=== PATIENT | female | born 1970 | race Caucasian/White ===

== ENCOUNTER 2023-08-24 10:24 | Outpatient (OUT) | payer OTHER, SELFPAY ==
--- NOTE | 2023-08-24 10:31 | MM_ITS ---
Patient Name: SHREE ACUÑA MR#: [id number] : 1970 Exam Date: 08/24/2023 Ordering Doctor: DR. ANAI ARREOLA D.O. RADIOLOGY REPORT PROCEDURE: MM TOMOSYNTHESIS SCREENING BI COMPARISON: MG MAMM SCREEN JOSE W CAD, 11/07/2016. MG MAMM SCREEN JOSE W CAD, 07/03/2020. INDICATIONS: Screening Calculator Name NCI Breast Cancer Risk Assessment Tool 5 Year Breast Cancer Risk 1.50% Lifetime Breast Cancer Risk 11.60% Personal Breast Cancer No Personal Ovarian Cancer No Treatments None Family Cancers None LOCATION: [facility] BREAST COMPOSITION: Extremely dense, which lowers the sensitivity of mammography. FINDINGS: DIAGNOSTIC CATEGORY 1--NEGATIVE. NO CHANGE FROM COMPARISON ASSESSMENT. Scattered benign-appearing nodules are present. Scattered benign-appearing calcifications are present. Scattered benign-appearing lymph nodes are present. RIGHT BREAST: No significant suspicious finding. LEFT BREAST: No significant suspicious finding. RECOMMENDATIONS: ROUTINE MAMMOGRAM AND CLINICAL EVALUATION IN 12 MONTHS. PLEASE NOTE: A NORMAL MAMMOGRAM DOES NOT EXCLUDE THE POSSIBILITY OF BREAST CANCER. A CLINICALLY SUSPICIOUS PALPABLE LUMP SHOULD BE BIOPSIED. Dictated by: Mark Vidal MD on 08/24/2023 at 11:15 Approved by: Mark Vidal MD on 08/24/2023 at 11:17
== END 2023-08-24 10:25 | disposition home or self-care (01) ==
LOC: MAMMO 10:24
PROVIDERS: PCP Family Medicine; Visit Provider Obstetrics & Gynecology
DX: Z12.31 Encounter for screening mammogram for malignant neoplasm of breast (principal)
CPT/HCPCS: 77063; 77067

== ENCOUNTER 2023-11-22 06:33 | Emergency (ER) | payer OTHER, SELFPAY ==
[2023-11-22] VITALS (11 sets, daily range): BP systolic 140–155; BP diastolic 72–91; PULSE 87–111; RESP 16–27; TEMP 36.7–37.2; O2SAT 95–97
--- OUTSIDE RECORDS SUMMARY | 2023-11-22 06:41 | XMS_ITS | CCD ---
Author Name Unknown Address [address] [place] [address] [id number] [place] [address] Organization [facility] Care Team Providers Care Pop Singer Name Role Phone Luiza Cota Unavailable Unavailable Luiza Cota Unavailable Unavailable MARIO AMEZCUA Unavailable Unavailable DALIA SCHWARTZ Consulting Unavailable TOMMY SAHA Admitting Unavailable TOMMY SAHA Attending Unavailable DR MORIAH NYE Primary Care Unavailable Mark Clarke Consulting Unavailable TOMMY SAHA Consulting Unavailable LINDSEY ARREOLA Attending Unavailable LINDSEY ARREOLA Admitting Unavailable Laura Andrews Unavailable Faiza Bruce Unavailable LINDSEY ARREOLA Attending Unavailable MORIAH NYE Attending Unavailable Moriah Nye MD Unavailable Moriah Nye MD Primary Care Provider Allergies Allergy Classification Reported Allergen(s) Allergy Type Date of Onset Reaction(s) Facility (1 source) Sulfonamides (Antibiotic); Translations: [sulfa drugs] Propensity to adverse reactions (disorder) [facility] Repository (1 source) Sulfonamides (Antibiotic) Drug allergy (disorder) [facility] Repository (2 sources) Sulfacetamide / Sulfur Drug Allergy rash [employer] Other (2 sources) Sulfonamides (Antibiotic) Drug Intolerance 08-26-20 [facility] Healthcare (2 sources) Milk-Related Compounds Drug Allergy 10-01-19 24 [facility] Medications Current Medications Medication Drug Class(es) Dates Sig (Normalized) Sig (Original) [id number] 200 actuat albuterol 0.09 mg/actuat metered dose inhaler (2 sources) beta2-Adrenergic Agonist albuterol HFA (Ventolin HFA) 90 mcg/act inhaler every 4 (four) hours 0 Active amoxicillin 875 mg oral tablet (1 source) Penicillin-class Antibacterial Start: 04-13-2023 take 1 tablet by mouth every twelve hours Amoxicillin 875 MG 1 capsule Orally Twice a day for 10 days Mar, Active busPIRone hydrochloride 5 mg oral tablet (2 sources) Start: 12-16-2022 busPIRone (Buspar) 5 MG tablet every 8 (eight) hours 0 12/16/2022 Active dicyclomine hydrochloride 10 mg oral capsule (1 source) Anticholinergic Start: 10-20-2023 take 1 capsule by mouth in the morning dicyclomine (Bentyl) 10 MG capsule Indications: Irritable bowel syndrome with diarrhea Take 1 capsule (10 mg) by mouth in the morning and 1 capsule (10 mg) before bedtime. 200 capsule 2 10/20/2023 Active docosahexaenoic acid 120 mg / eicosapentaenoic acid 180 mg oral capsule (2 sources) omega-3 (fish oil) 1000 MG capsule 1 capsule 1 (one) time each day at the same time 0 Active hyoscyamine sulfate 0.125 mg sublingual tablet (2 sources) Start: 10-20-2023 End: 01-18-2024 hyoscyamine (Levsin/SL) 0.125 MG SL tablet Indications: Irritable bowel syndrome with diarrhea Place 1 tablet (125 mcg) under the tongue every 4 (four) hours if needed for bladder spasms 120 tablet 2 10/20/2023 01/18/2024 Active Start: 10-20-2023 End: 10-20-2023 take 5 mL by mouth every four hours for muscle spasms hyoscyamine (Levsin) 0.125 MG/5ML elixir Indications: Irritable bowel syndrome with diarrhea Take 5 mL (125 mcg) by mouth every 4 (four) hours if needed for bladder spasms 600 mL 2 10/20/2023 10/20/2023 Discontinued (Other) metroNIDAZOLE 0.0075 mg/mg topical gel (2 sources) Nitroimidazole Antimicrobial Start: 09-23-2023 metroNIDAZOLE (Metrogel) 0.75 % gel APPLY TOPICALLY TO FACE TWICE A DAY 0 09/23/2023 Active Multiple Vitamins-Minerals (Multi For Her) capsule (2 sources) Multiple Vitamins-Minerals (Multi For Her) capsule as directed Orally 0 Active 24 hr venlafaxine 75 mg extended release oral capsule (2 sources) Serotonin and Norepinephrine Reuptake Inhibitor Start: 01-26-2023 take 1 capsule by mouth once daily at mealtime venlafaxine XR (Effexor XR) 75 MG 24 hr capsule TAKE 1 CAPSULE BY MOUTH ONCE EVERYDAY WITH FOOD 0 01/26/2023 Active VITAMIN B COMPLEX-C PO (2 sources) VITAMIN B COMPLEX-C PO Vitamin B Complex 0 Active Vitamin C 250 MG tablet (2 sources) Vitamin C 250 MG tablet Vitamin C 0 Active Problems Active Problems Problem Classification Problem Date Documented Da te Episodic/Chronic Adjustment disorders (2 sources) Adjustment disorder with mixed disturbance of emotions AND conduct; Translations: [Adjustment disorder with mixed disturbance of emotions and conduct] Onset: 04-07-2008 10-08-2023 Chronic Disorders of lipid metabolism (2 sources) Eruptive xanthoma; 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] Onset: 10-08-2023 10-08-2023 Chronic Intestinal infection (1 source) Viral gastroenteritis; Translations: [Viral intestinal infection, unspecified] Onset: 10-20-2023 10-20-2023 Episodic Menopausal disorders (2 sources) Menopausal symptom; Translations: [Menopausal and female climacteric states] Onset: 10-08-2023 10-08-2023 Chronic Menstrual disorders (2 sources) Disorder of menstruation; Translations: [Irregular menstruation, unspecified] Onset: 10-08-2023 10-08-2023 Chronic Mood disorders (2 sources) Depressive disorder; Translations: [Depressive disorder] Onset: 04-07-2008 10-08-2023 Chronic Nutritional deficiencies (2 sources) Vitamin D deficiency; Translations: [Vitamin D deficiency, unspecified] Onset: 10-08-2023 10-08-2023 Chronic Other ear and sense organ disorders (1 source) Impacted cerumen, bilateral Episodic Other ear and sense organ disorders (1 source) Impacted cerumen, right ear Episodic Other gastrointestinal disorders (2 sources) Irritable bowel syndrome; Translations: [Irritable bowel syndrome without diarrhea] Onset: 04-07-2008 10-08-2023 Chronic Other gastrointestinal disorders (1 source) Irritable bowel syndrome with diarrhea; Translations: [Irritable bowel syndrome with diarrhea] 10-20-2023 Chronic Other lower respiratory disease (1 source) Shortness of breath; Translations: [SHORTNESS OF BREATH] Onset: 08-13-2021 Episodic Other upper respiratory disease (2 sources) Allergic rhinitis; Translations: [Allergic rhinitis, unspecified] Onset: 04-07-2008 10-08-2023 Chronic Other upper respiratory infections (1 source) Acute frontal sinusitis, unspecified Episodic Pneumonia (except that caused by tuberculosis or sexually transmitted disease) (1 source) Pneumonia (except that caused by tuberculosis or sexually transmitted disease); Translations: [PNEUMONIA D/T CORONAVIRUS DIS 2019] Onset: 08-13-2021 Respiratory failure; insufficiency; arrest (adult) (1 source) Acute respiratory failure; Translations: [Acute respiratory failure with hypoxia] Onset: 10-20-2023 10-20-2023 Episodic Viral infection (5 sources) Verruca plantaris; Translations: [Plantar wart] Onset: 10-08-2023 10-08-2023 Episodic Viral infection (4 sources) COVID-19; Translations: [COVID-19] Onset: 08-10-2021 Past or Other Problems Problem Classification Problem Date Documented Da te Episodic/Chronic Gastritis and duodenitis (2 sources) Acute gastritis; Translations: [Acute gastritis without bleeding] Onset: 04-07-2008 10-08-2023 Episodic Other ear and sense organ disorders (2 sources) Bullous myringitis; 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 Performed By: #### B AUTOMATIC MACHINES SUPERVISOR, CKMB, CBC, CK, CMP, HS TROP #### [address] Comprehensive Metabolic Pane jade 08-17-2021 Albumin [Mass/Vol] 2.8 g/dL Low 3.2-5.5 [facility] Comment on above: Performed By: #### B AUTOMATIC MACHINES SUPERVISOR, CKMB, CBC, CK, CMP, HS TROP #### [address] Albumin/Globulin [Mass ratio] 1.0 {ratio} Normal [facility] Comment on above: Performed By: #### B AUTOMATIC MACHINES SUPERVISOR, CKMB, CBC, CK, CMP, HS TROP #### [address] ALP [Catalytic activity/Vol] 41 U/L Normal 32-92 [facility] Comment on above: Performed By: #### B AUTOMATIC MACHINES SUPERVISOR, CKMB, CBC, CK, CMP, HS TROP #### [address] ALT [Catalytic activity/Vol] 17 U/L Normal 10-60 [facility] Comment on above: Performed By: #### B AUTOMATIC MACHINES SUPERVISOR, CKMB, CBC, CK, CMP, HS TROP #### [address] AST [Catalytic activity/Vol] 17 U/L Normal 10-42 [facility] Comment on above: Performed By: #### B AUTOMATIC MACHINES SUPERVISOR, CKMB, CBC, CK, CMP, HS TROP #### [address] Bilirubin [Mass/Vol] 1.0 mg/dL Normal 0.3-1.2 [facility] Comment on above: Performed By: #### B AUTOMATIC MACHINES SUPERVISOR, CKMB, CBC, CK, CMP, HS TROP #### [address] Calcium [Mass/Vol] 8.9 mg/dL Normal 8.2-10.2 [facility] Comment on above: Performed By: #### B AUTOMATIC MACHINES SUPERVISOR, CKMB, CBC, CK, CMP, HS TROP #### [address] Chloride [Moles/Vol] 107 mmol/L Normal 95-114 [facility] Comment on above: Performed By: #### B AUTOMATIC MACHINES SUPERVISOR, CKMB, CBC, CK, CMP, HS TROP #### [facility] [address] CO2 [Moles/Vol] 22.7 mmol/L Normal 22.0-30.0 [facility] Comment on above: Performed By: #### B AUTOMATIC MACHINES SUPERVISOR, CKMB, CBC, CK, CMP, HS TROP #### [facility] [address] Creatinine [Mass/Vol] 0.69 mg/dL Normal 0.44-1.03 [facility] Comment on above: Performed By: #### B AUTOMATIC MACHINES SUPERVISOR, CKMB, CBC, CK, CMP, HS TROP #### [facility] [address] Creatinine Clr Calc Pharmacy 97.85 [facility] Comment on above: Performed By: #### B AUTOMATIC MACHINES SUPERVISOR, CKMB, CBC, CK, CMP, HS TROP #### [address] Estimated GFR ( Rin > 60 [facility] Comment on above: Result Comment: GFR estimated reference range: According to KDOQI guidelines, <60 ml/min/1.73m2 is sufficient to diagnose a patient with chronic kidney disease. Performed By: #### B AUTOMATIC MACHINES SUPERVISOR, CKMB, CBC, CK, CMP, HS TROP #### [address] Estimated GFR (Non- Am > 60 [facility] Comment on above: Performed By: #### B AUTOMATIC MACHINES SUPERVISOR, CKMB, CBC, CK, CMP, HS TROP #### [address] Globulin (S) [Mass/Vol] 2.8 g/dL [facility] Comment on above: Performed By: #### B AUTOMATIC MACHINES SUPERVISOR, CKMB, CBC, CK, CMP, HS TROP #### [address] Glucose [Mass/Vol] 87 mg/dL Normal 70-100 [facility] Comment on above: Result Comment: [facility] Glucose Reference Range is dependent on time and content of last meal. Glucose of more than 200 mg/dL in a nonstressed, ambulatory subject supports the diagnosis of Diabetes Mellitus. ADA recommended reference range Performed By: #### B AUTOMATIC MACHINES SUPERVISOR, CKMB, CBC, CK, CMP, HS TROP #### [address] Potassium [Moles/Vol] 3.7 mmol/L Normal 3.5-5.1 [facility] Comment on above: Performed By: #### B AUTOMATIC MACHINES SUPERVISOR, CKMB, CBC, CK, CMP, HS TROP #### [address] Protein [Mass/Vol] 5.6 g/dL Low 6.1-7.9 [facility] Comment on above: Performed By: #### B AUTOMATIC MACHINES SUPERVISOR, CKMB, CBC, CK, CMP, HS TROP #### [address] Sodium [Moles/Vol] 140 mmol/L Normal 136-146 [facility] Comment on above: Performed By: #### B AUTOMATIC MACHINES SUPERVISOR, CKMB, CBC, CK, CMP, HS TROP #### [address] Urea nitrogen [Mass/Vol] 13 mg/dL Normal 9-23 [facility] Comment on above: Performed By: #### B AUTOMATIC MACHINES SUPERVISOR, CKMB, CBC, CK, CMP, HS TROP #### [address] D-Dimer High Sensitivityon 1 10-18-2020 D-Dimer High Sensitivity 203 ng/mL Normal 0-243 [facility] Comment on above: Result Comment: The reference range for D-dimer is <243 ng/mL D-dimer units. D-dimer results must be used in conjunction with a clinical pretest probability (PTP) assessment model for deep vein thrombosis (DVT) and pulmonary embolism (PE). Results <230 ng/mL d-dimer units can be used as a negative predictor in patients with low or moderate probability for DVT/PE. Results above the exclusion threshold of 230 ng/ml D-dimer units for DVT/PE may indicate the need for further diagnostic testing. D-Dimer can be increased in hospitalized patients due to co-morbid conditions. PERFORMED BY: [place] [id number] PATHOLOGIST [employer] I ASSEMBLER RONNIE AQUINO M.D. Performed By: #### B AUTOMATIC MACHINES SUPERVISOR, CKMB, CBC, CK, CMP, HS TROP #### [address] Scan and CBCon 08-17-2021 Basophils (Bld) [#/Vol] 0.0 10*3/uL Normal 0.0-0.2 [facility] Comment on above: Performed By: #### B AUTOMATIC MACHINES SUPERVISOR, CKMB, CBC, CK, CMP, HS TROP #### [address] Basophils/100 WBC (Bld) 0.1 % Normal . [facility] Comment on above: Performed By: #### B AUTOMATIC MACHINES SUPERVISOR, CKMB, CBC, CK, CMP, HS TROP #### [address] Eosinophils (Bld) [#/Vol] 0.0 10*3/uL Normal 0.0-0.45 [facility] Comment on above: Performed By: #### B AUTOMATIC MACHINES SUPERVISOR, CKMB, CBC, CK, CMP, HS TROP #### [address] Eosinophils/100 WBC (Bld) 0.2 % Normal . [facility] Comment on above: Performed By: #### B AUTOMATIC MACHINES SUPERVISOR, CKMB, CBC, CK, CMP, HS TROP #### [address] Erythrocyte distribution width (RBC) [Ratio] 12.5 % Normal 11.9-15.3 [facility] Comment on above: Performed By: #### B AUTOMATIC MACHINES SUPERVISOR, CKMB, CBC, CK, CMP, HS TROP #### [address] Hematocrit (Bld) [Volume fraction] 36.9 % Normal 34.0-46.4 [facility] Comment on above: Performed By: #### B AUTOMATIC MACHINES SUPERVISOR, CKMB, CBC, CK, CMP, HS TROP #### [address] Hemoglobin (Bld) [Mass/Vol] 13.0 g/dL Normal 11.8-15.4 [facility] Comment on above: Performed By: #### B AUTOMATIC MACHINES SUPERVISOR, CKMB, CBC, CK, CMP, HS TROP #### [address] Lymphocytes (Bld) [#/Vol] 1.2 10*3/uL Normal 1.00-4.8 [facility] Comment on above: Performed By: #### B AUTOMATIC MACHINES SUPERVISOR, CKMB, CBC, CK, CMP, HS TROP #### [address] Lymphocytes/100 WBC (Bld) 15.2 % Normal . [facility] Comment on above: Performed By: #### B AUTOMATIC MACHINES SUPERVISOR, CKMB, CBC, CK, CMP, HS TROP #### [address] MCH (RBC) [Entitic mass] 30.6 pg Normal 24.7-34.3 [facility] Comment on above: Performed By: #### B AUTOMATIC MACHINES SUPERVISOR, CKMB, CBC, CK, CMP, HS TROP #### [address] MCV (RBC) [Entitic vol] 86.9 fL Normal 80-100 [facility] Comment on above: Performed By: #### B AUTOMATIC MACHINES SUPERVISOR, CKMB, CBC, CK, CMP, HS TROP #### [address] Mean Corpuscular HGB Conc 35.3 g/dL High 32.0-35.0 [facility] Comment on above: Performed By: #### B AUTOMATIC MACHINES SUPERVISOR, CKMB, CBC, CK, CMP, HS TROP #### [address] Monocytes (Bld) [#/Vol] 0.7 10*3/uL Normal 0.0-0.8 [facility] Comment on above: Performed By: #### B AUTOMATIC MACHINES SUPERVISOR, CKMB, CBC, CK, CMP, HS TROP #### [facility] [address] Monocytes/100 WBC (Bld) 8.6 % Normal . [facility] Comment on above: Performed By: #### B AUTOMATIC MACHINES SUPERVISOR, CKMB, CBC, CK, CMP, HS TROP #### [facility] [address] Neutrophils (Bld) [#/Vol] 5.9 10*3/uL Normal 1.8-7.7 [facility] Comment on above: Performed By: #### B AUTOMATIC MACHINES SUPERVISOR, CKMB, CBC, CK, CMP, HS TROP #### [facility] [address] Neutrophils/100 WBC (Bld) 75.9 % Normal . [facility] Comment on above: Performed By: #### B AUTOMATIC MACHINES SUPERVISOR, CKMB, CBC, CK, CMP, HS TROP #### [address] Nucleated RBC/100 WBC (Bld) [Ratio] 0.2 % Normal 0-0.5 [facility] Comment on above: Performed By: #### B AUTOMATIC MACHINES SUPERVISOR, CKMB, CBC, CK, CMP, HS TROP #### [address] Platelet Estimate Normal Normal Normal [facility] Comment on above: Performed By: #### B AUTOMATIC MACHINES SUPERVISOR, CKMB, CBC, CK, CMP, HS TROP #### [address] Platelet mean volume (Bld) [Entitic vol] 7.0 fL Normal 6.3-10.7 [facility] Comment on above: Performed By: #### B AUTOMATIC MACHINES SUPERVISOR, CKMB, CBC, CK, CMP, HS TROP #### [address] Platelet Morphology Normal Normal Normal [facility] Comment on above: Result Comment: PERF ORMED BY: [place] [id number] PATHOLOGIST [employer] I ASSEMBLER RONNIE AQUINO M.D. Performed By: #### B AUTOMATIC MACHINES SUPERVISOR, CKMB, CBC, CK, CMP, HS TROP #### [facility] [address] Platelets (Bld) [#/Vol] 291 10*3/uL Normal 150-450 [facility] Comment on above: Performed By: #### B AUTOMATIC MACHINES SUPERVISOR, CKMB, CBC, CK, CMP, HS TROP #### [facility] [address] RBC (Bld) [#/Vol] 4.24 10*6/uL Normal 3.60-5.00 [facility] Comment on above: Performed By: #### B AUTOMATIC MACHINES SUPERVISOR, CKMB, CBC, CK, CMP, HS TROP #### [facility] [address] RBC morphology finding Nom (Bld) Normal Normal [facility] Comment on above: Performed By: #### B AUTOMATIC MACHINES SUPERVISOR, CKMB, CBC, CK, CMP, HS TROP #### [facility] [address] WBC (Bld) [#/Vol] 7.7 10*3/uL Normal 4.5-11.0 [facility] Comment on above: Performed By: #### B AUTOMATIC MACHINES SUPERVISOR, CKMB, CBC, CK, CMP, HS TROP #### [facility] [address] Comprehensive Metabolic Pane jade 08-16-2021 Albumin [Mass/Vol] 2.9 g/dL Low 3.2-5.5 [facility] Comment on above: Performed By: #### B AUTOMATIC MACHINES SUPERVISOR, CKMB, CBC, CK, CMP, HS TROP #### [facility] [address] Albumin/Globulin [Mass ratio] 1.0 {ratio} Normal [facility] Comment on above: Performed By: #### B AUTOMATIC MACHINES SUPERVISOR, CKMB, CBC, CK, CMP, HS TROP #### [facility] [address] ALP [Catalytic activity/Vol] 42 U/L Normal 32-92 [facility] Comment on above: Performed By: #### B AUTOMATIC MACHINES SUPERVISOR, CKMB, CBC, CK, CMP, HS TROP #### [address] ALT [Catalytic activity/Vol] 18 U/L Normal 10-60 [facility] Comment on above: Performed By: #### B AUTOMATIC MACHINES SUPERVISOR, CKMB, CBC, CK, CMP, HS TROP #### [address] AST [Catalytic activity/Vol] 22 U/L Normal 10-42 [facility] Comment on above: Performed By: #### B AUTOMATIC MACHINES SUPERVISOR, CKMB, CBC, CK, CMP, HS TROP #### [address] Bilirubin [Mass/Vol] 1.1 mg/dL Normal 0.3-1.2 [facility] Comment on above: Performed By: #### B AUTOMATIC MACHINES SUPERVISOR, CKMB, CBC, CK, CMP, HS TROP #### [address] Calcium [Mass/Vol] 8.8 mg/dL Normal 8.2-10.2 [facility] Comment on above: Performed By: #### B AUTOMATIC MACHINES SUPERVISOR, CKMB, CBC, CK, CMP, HS TROP #### [address] Chloride [Moles/Vol] 107 mmol/L Normal 95-114 [facility] Comment on above: Performed By: #### B AUTOMATIC MACHINES SUPERVISOR, CKMB, CBC, CK, CMP, HS TROP #### [address] CO2 [Moles/Vol] 22.3 mmol/L Normal 22.0-30.0 [facility] Comment on above: Performed By: #### B AUTOMATIC MACHINES SUPERVISOR, CKMB, CBC, CK, CMP, HS TROP #### [address] Creatinine [Mass/Vol] 0.80 mg/dL Normal 0.44-1.03 [facility] Comment on above: Performed By: #### B AUTOMATIC MACHINES SUPERVISOR, CKMB, CBC, CK, CMP, HS TROP #### [address] Creatinine Clr Calc Pharmacy 85.50 [facility] Comment on above: Result Comment: PERF ORMED BY: [place] [id number] PATHOLOGIST [employer] I ASSEMBLER RONNIE AQUINO M.D. Performed By: #### B AUTOMATIC MACHINES SUPERVISOR, CKMB, CBC, CK, CMP, HS TROP #### [address] Estimated GFR ( Rin > 60 [facility] Comment on above: Result Comment: GFR estimated reference range: According to KDOQI guidelines, <60 ml/min/1.73m2 is sufficient to diagnose a patient with chronic kidney disease. Performed By: #### B AUTOMATIC MACHINES SUPERVISOR, CKMB, CBC, CK, CMP, HS TROP #### [address] Estimated GFR (Non- Am > 60 [facility] Comment on above: Performed By: #### B AUTOMATIC MACHINES SUPERVISOR, CKMB, CBC, CK, CMP, HS TROP #### [address] Globulin (S) [Mass/Vol] 3.0 g/dL Normal [facility] Comment on above: Performed By: #### B AUTOMATIC MACHINES SUPERVISOR, CKMB, CBC, CK, CMP, HS TROP #### [address] Glucose [Mass/Vol] 90 mg/dL Normal 70-100 [facility] Comment on above: Result Comment: [place] Glucose Reference Range is dependent on time and content of last meal. Glucose of more than 200 mg/dL in a nonstressed, ambulatory subject supports the diagnosis of Diabetes Mellitus. ADA recommended reference range Performed By: #### B AUTOMATIC MACHINES SUPERVISOR, CKMB, CBC, CK, CMP, HS TROP #### [address] Potassium [Moles/Vol] 4.0 mmol/L Normal 3.5-5.1 [facility] Comment on above: Performed By: #### B AUTOMATIC MACHINES SUPERVISOR, CKMB, CBC, CK, CMP, HS TROP #### [address] Protein [Mass/Vol] 5.9 g/dL Low 6.1-7.9 [facility] Comment on above: Performed By: #### B AUTOMATIC MACHINES SUPERVISOR, CKMB, CBC, CK, CMP, HS TROP #### [address] Sodium [Moles/Vol] 140 mmol/L Normal 136-146 [facility] Comment on above: Performed By: #### B AUTOMATIC MACHINES SUPERVISOR, CKMB, CBC, CK, CMP, HS TROP #### [address] Urea nitrogen [Mass/Vol] 17 mg/dL Normal 9-23 [facility] Comment on above: Performed By: #### B AUTOMATIC MACHINES SUPERVISOR, CKMB, CBC, CK, CMP, HS TROP #### [address] Diff and CBCon 08-16-2021 Erythrocyte distribution width (RBC) [Ratio] 12.6 % Normal 11.9-15.3 [facility] Comment on above: Performed By: #### B AUTOMATIC MACHINES SUPERVISOR, CKMB, CBC, CK, CMP, HS TROP #### [address] Hematocrit (Bld) [Volume fraction] 39.0 % Normal 34.0-46.4 [facility] Comment on above: Performed By: #### B AUTOMATIC MACHINES SUPERVISOR, CKMB, CBC, CK, CMP, HS TROP #### [address] Hemoglobin (Bld) [Mass/Vol] 13.5 g/dL Normal 11.8-15.4 [facility] Comment on above: Performed By: #### B AUTOMATIC MACHINES SUPERVISOR, CKMB, CBC, CK, CMP, HS TROP #### [address] Lymphocytes/100 WBC (Bld) 14 % Low 18-42 [facility] Comment on above: Performed By: #### B AUTOMATIC MACHINES SUPERVISOR, CKMB, CBC, CK, CMP, HS TROP #### [address] MCH (RBC) [Entitic mass] 30.0 pg Normal 24.7-34.3 [facility] Comment on above: Performed By: #### B AUTOMATIC MACHINES SUPERVISOR, CKMB, CBC, CK, CMP, HS TROP #### [address] MCV (RBC) [Entitic vol] 86.6 fL Normal 80-100 [facility] Comment on above: Performed By: #### B AUTOMATIC MACHINES SUPERVISOR, CKMB, CBC, CK, CMP, HS TROP #### [address] Mean Corpuscular HGB Conc 34.6 g/dL Normal 32.0-35.0 [facility] Comment on above: Performed By: #### B AUTOMATIC MACHINES SUPERVISOR, CKMB, CBC, CK, CMP, HS TROP #### [address] Metamyelocytes 2 % High 0-0 [facility] Comment on above: Performed By: #### B AUTOMATIC MACHINES SUPERVISOR, CKMB, CBC, CK, CMP, HS TROP #### [address] Monocytes/100 WBC (Bld) 1 % Low 2-11 [facility] Comment on above: Performed By: #### B AUTOMATIC MACHINES SUPERVISOR, CKMB, CBC, CK, CMP, HS TROP #### [address] Myelocytes 2 % High 0-0 [facility] Comment on above: Performed By: #### B AUTOMATIC MACHINES SUPERVISOR, CKMB, CBC, CK, CMP, HS TROP #### [address] Nucleated RBC/100 WBC (Bld) [Ratio] 0.0 % Normal 0-0.5 [facility] Comment on above: Result Comment: PERF ORMED BY: [place] [id number] PATHOLOGIST [employer] I ASSEMBLER RONNIE AQUINO M.D. Performed By: #### B AUTOMATIC MACHINES SUPERVISOR, CKMB, CBC, CK, CMP, HS TROP #### [address] Platelet Estimate Normal Normal Normal [facility] Comment on above: Performed By: #### B AUTOMATIC MACHINES SUPERVISOR, CKMB, CBC, CK, CMP, HS TROP #### [address] Platelet mean volume (Bld) [Entitic vol] 6.7 fL Normal 6.3-10.7 [facility] Comment on above: Performed By: #### B AUTOMATIC MACHINES SUPERVISOR, CKMB, CBC, CK, CMP, HS TROP #### [address] Platelet Morphology Normal Normal Normal [facility] Comment on above: Result Comment: PERF ORMED BY: [place] [id number] PATHOLOGIST [employer] I ASSEMBLER RONNIE AQUINO M.D. Performed By: #### B AUTOMATIC MACHINES SUPERVISOR, CKMB, CBC, CK, CMP, HS TROP #### [address] Platelets (Bld) [#/Vol] 300 10*3/uL Normal 150-450 [facility] Comment on above: Performed By: #### B AUTOMATIC MACHINES SUPERVISOR, CKMB, CBC, CK, CMP, HS TROP #### [address] RBC (Bld) [#/Vol] 4.51 10*6/uL Normal 3.60-5.00 [facility] Comment on above: Performed By: #### B AUTOMATIC MACHINES SUPERVISOR, CKMB, CBC, CK, CMP, HS TROP #### [address] RBC morphology finding Nom (Bld) Normal Normal [facility] Comment on above: Performed By: #### B AUTOMATIC MACHINES SUPERVISOR, CKMB, CBC, CK, CMP, HS TROP #### [address] Reactive Lymphocytes 2 % Normal 0-12 [facility] Comment on above: Performed By: #### B AUTOMATIC MACHINES SUPERVISOR, CKMB, CBC, CK, CMP, HS TROP #### [facility] [address] Segmented neutrophils/100 WBC (Bld) 79 % High 50-70 [facility] Comment on above: Performed By: #### B AUTOMATIC MACHINES SUPERVISOR, CKMB, CBC, CK, CMP, HS TROP #### [facility] [address] WBC (Bld) [#/Vol] 6.6 10*3/uL Normal 4.5-11.0 [facility] Comment on above: Performed By: #### B AUTOMATIC MACHINES SUPERVISOR, CKMB, CBC, CK, CMP, HS TROP #### [facility] [address] Comprehensive Metabolic Pane jade 08-15-2021 Albumin [Mass/Vol] 2.9 g/dL Low 3.2-5.5 [facility] Comment on above: Performed By: #### B AUTOMATIC MACHINES SUPERVISOR, CKMB, CBC, CK, CMP, HS TROP #### [facility] [address] Albumin/Globulin [Mass ratio] 0.9 {ratio} Normal [facility] Comment on above: Performed By: #### B AUTOMATIC MACHINES SUPERVISOR, CKMB, CBC, CK, CMP, HS TROP #### [facility] [address] [place] [address] ALP [Catalytic activity/Vol] 43 U/L Normal 32-92 [facility] Comment on above: Performed By: #### B AUTOMATIC MACHINES SUPERVISOR, CKMB, CBC, CK, CMP, HS TROP #### [facility] [address] ALT [Catalytic activity/Vol] 19 U/L Normal 10-60 [facility] Comment on above: Performed By: #### B AUTOMATIC MACHINES SUPERVISOR, CKMB, CBC, CK, CMP, HS TROP #### [facility] [address] AST [Catalytic activity/Vol] 23 U/L Normal 10-42 [facility] Comment on above: Performed By: #### B AUTOMATIC MACHINES SUPERVISOR, CKMB, CBC, CK, CMP, HS TROP #### [address] Bilirubin [Mass/Vol] 1.1 mg/dL Normal 0.3-1.2 [facility] Comment on above: Performed By: #### B AUTOMATIC MACHINES SUPERVISOR, CKMB, CBC, CK, CMP, HS TROP #### [address] Calcium [Mass/Vol] 8.9 mg/dL Normal 8.2-10.2 [facility] Comment on above: Performed By: #### B AUTOMATIC MACHINES SUPERVISOR, CKMB, CBC, CK, CMP, HS TROP #### [address] Chloride [Moles/Vol] 106 mmol/L Normal 95-114 [facility] Comment on above: Performed By: #### B AUTOMATIC MACHINES SUPERVISOR, CKMB, CBC, CK, CMP, HS TROP #### [address] CO2 [Moles/Vol] 21.8 mmol/L Low 22.0-30.0 [facility] Comment on above: Performed By: #### B AUTOMATIC MACHINES SUPERVISOR, CKMB, CBC, CK, CMP, HS TROP #### [address] Creatinine [Mass/Vol] 0.78 mg/dL Normal 0.44-1.03 [facility] Comment on above: Performed By: #### B AUTOMATIC MACHINES SUPERVISOR, CKMB, CBC, CK, CMP, HS TROP #### [address] Creatinine Clr Calc Pharmacy 87.[address] [facility] Comment on above: Result Comment: PERF ORMED BY: [place] [id number] PATHOLOGIST [employer] I ASSEMBLER RONNIE AQUINO M.D. Performed By: #### B AUTOMATIC MACHINES SUPERVISOR, CKMB, CBC, CK, CMP, HS TROP #### [address] Estimated GFR ( Rin > [address] [facility] Comment on above: Result Comment: GFR estimated reference range: According to KDOQI guidelines, <60 ml/min/1.73m2 is sufficient to diagnose a patient with chronic kidney disease. Performed By: #### B AUTOMATIC MACHINES SUPERVISOR, CKMB, CBC, CK, CMP, HS TROP #### [facility] [address] Estimated GFR (Non- Am > [address] [facility] Comment on above: Performed By: #### B AUTOMATIC MACHINES SUPERVISOR, CKMB, CBC, CK, CMP, HS TROP #### [facility] [address] Globulin (S) [Mass/Vol] 3.2 g/dL Normal [facility] Comment on above: Performed By: #### B AUTOMATIC MACHINES SUPERVISOR, CKMB, CBC, CK, CMP, HS TROP #### [facility] [address] Glucose [Mass/Vol] 98 mg/dL Normal 70-100 [facility] Comment on above: Result Comment: [facility] Glucose Reference Range is dependent on time and content of last meal. Glucose of more than 200 mg/dL in a nonstressed, ambulatory subject supports the diagnosis of Diabetes Mellitus. ADA recommended reference range Performed By: #### B AUTOMATIC MACHINES SUPERVISOR, CKMB, CBC, CK, CMP, HS TROP #### [facility] [address] Potassium [Moles/Vol] 3.8 mmol/L Normal 3.5-5.1 [facility] Comment on above: Performed By: #### B AUTOMATIC MACHINES SUPERVISOR, CKMB, CBC, CK, CMP, HS TROP #### [facility] [address] [place] [address] [place] Protein [Mass/Vol] 6.1 g/dL Normal 6.1-7.9 [facility] Comment on above: Performed By: #### B AUTOMATIC MACHINES SUPERVISOR, CKMB, CBC, CK, CMP, HS TROP #### [facility] [address] [place] [address] [place] Sodium [Moles/Vol] 139 mmol/L Normal 136-146 [facility] Comment on above: Performed By: #### B AUTOMATIC MACHINES SUPERVISOR, CKMB, CBC, CK, CMP, HS TROP #### [facility] [address] Urea nitrogen [Mass/Vol] 19 mg/dL Normal 9-23 [facility] Comment on above: Performed By: #### B AUTOMATIC MACHINES SUPERVISOR, CKMB, CBC, CK, CMP, HS TROP #### [facility] [address] Scan and CBCon 08-15-2021 Basophils (Bld) [#/Vol] 0.0 10*3/uL Normal 0.0-0.2 [facility] Comment on above: Performed By: #### B AUTOMATIC MACHINES SUPERVISOR, CKMB, CBC, CK, CMP, HS TROP #### [address] Basophils/100 WBC (Bld) 0.1 % Normal . [facility] Comment on above: Performed By: #### B AUTOMATIC MACHINES SUPERVISOR, CKMB, CBC, CK, CMP, HS TROP #### [address] Eosinophils (Bld) [#/Vol] 0.0 10*3/uL Normal 0.0-0.45 [facility] Comment on above: Performed By: #### B AUTOMATIC MACHINES SUPERVISOR, CKMB, CBC, CK, CMP, HS TROP #### [address] Eosinophils/100 WBC (Bld) 0.0 % Normal . [facility] Comment on above: Performed By: #### B AUTOMATIC MACHINES SUPERVISOR, CKMB, CBC, CK, CMP, HS TROP #### [address] Erythrocyte distribution width (RBC) [Ratio] 12.6 % Normal 11.9-15.3 [facility] Comment on above: Performed By: #### B AUTOMATIC MACHINES SUPERVISOR, CKMB, CBC, CK, CMP, HS TROP #### [address] Hematocrit (Bld) [Volume fraction] 37.1 % Normal 34.0-46.4 [facility] Comment on above: Performed By: #### B AUTOMATIC MACHINES SUPERVISOR, CKMB, CBC, CK, CMP, HS TROP #### [address] Hemoglobin (Bld) [Mass/Vol] 13.0 g/dL Normal 11.8-15.4 [facility] Comment on above: Performed By: #### B AUTOMATIC MACHINES SUPERVISOR, CKMB, CBC, CK, CMP, HS TROP #### [address] Lymphocytes (Bld) [#/Vol] 0.6 10*3/uL Low 1.00-4.8 [facility] Comment on above: Performed By: #### B AUTOMATIC MACHINES SUPERVISOR, CKMB, CBC, CK, CMP, HS TROP #### [address] Lymphocytes/100 WBC (Bld) 13.4 % Normal . [facility] Comment on above: Performed By: #### B AUTOMATIC MACHINES SUPERVISOR, CKMB, CBC, CK, CMP, HS TROP #### [address] MCH (RBC) [Entitic mass] 30.6 pg Normal 24.7-34.3 [facility] Comment on above: Performed By: #### B AUTOMATIC MACHINES SUPERVISOR, CKMB, CBC, CK, CMP, HS TROP #### [address] MCV (RBC) [Entitic vol] 87.5 fL Normal 80-100 [facility] Comment on above: Performed By: #### B AUTOMATIC MACHINES SUPERVISOR, CKMB, CBC, CK, CMP, HS TROP #### [address] Mean Corpuscular HGB Conc 35.0 g/dL Normal 32.0-35.0 [facility] Comment on above: Performed By: #### B AUTOMATIC MACHINES SUPERVISOR, CKMB, CBC, CK, CMP, HS TROP #### [address] Monocytes (Bld) [#/Vol] 0.4 10*3/uL Normal 0.0-0.8 [facility] Comment on above: Performed By: #### B AUTOMATIC MACHINES SUPERVISOR, CKMB, CBC, CK, CMP, HS TROP #### [facility] [address] Monocytes/100 WBC (Bld) 10.1 % Normal . [facility] Comment on above: Performed By: #### B AUTOMATIC MACHINES SUPERVISOR, CKMB, CBC, CK, CMP, HS TROP #### [address] Neutrophils (Bld) [#/Vol] 3.4 10*3/uL Normal 1.8-7.7 [facility] Comment on above: Performed By: #### B AUTOMATIC MACHINES SUPERVISOR, CKMB, CBC, CK, CMP, HS TROP #### [address] Neutrophils/100 WBC (Bld) 76.4 % Normal . [facility] Comment on above: Performed By: #### B AUTOMATIC MACHINES SUPERVISOR, CKMB, CBC, CK, CMP, HS TROP #### [place] [address] [place] Nucleated RBC/100 WBC (Bld) [Ratio] 0.2 % Normal 0-0.5 [facility] Comment on above: Performed By: #### B AUTOMATIC MACHINES SUPERVISOR, CKMB, CBC, CK, CMP, HS TROP #### [address] Platelet Estimate Normal Normal Normal [facility] Comment on above: Performed By: #### B AUTOMATIC MACHINES SUPERVISOR, CKMB, CBC, CK, CMP, HS TROP #### [facility] [address] Platelet mean volume (Bld) [Entitic vol] 7.4 fL Normal 6.3-10.7 [facility] Comment on above: Performed By: #### B AUTOMATIC MACHINES SUPERVISOR, CKMB, CBC, CK, CMP, HS TROP #### [address] Platelet Morphology Normal Normal Normal [facility] Comment on above: Result Comment: PERF ORMED BY: [place] [id number] PATHOLOGIST [employer] I ASSEMBLER RONNIE AQUINO M.D. Performed By: #### B AUTOMATIC MACHINES SUPERVISOR, CKMB, CBC, CK, CMP, HS TROP #### [facility] [address] Platelets (Bld) [#/Vol] 256 10*3/uL Normal 150-450 [facility] Comment on above: Performed By: #### B AUTOMATIC MACHINES SUPERVISOR, CKMB, CBC, CK, CMP, HS TROP #### [facility] [address] RBC (Bld) [#/Vol] 4.24 10*6/uL Normal 3.60-5.00 [facility] Comment on above: Performed By: #### B AUTOMATIC MACHINES SUPERVISOR, CKMB, CBC, CK, CMP, HS TROP #### [facility] [address] RBC morphology finding Nom (Bld) Normal Normal [facility] Comment on above: Performed By: #### B AUTOMATIC MACHINES SUPERVISOR, CKMB, CBC, CK, CMP, HS TROP #### [facility] [address] Reactive Lymphs Rare Normal [facility] Comment on above: Performed By: #### B AUTOMATIC MACHINES SUPERVISOR, CKMB, CBC, CK, CMP, HS TROP #### [facility] [address] WBC (Bld) [#/Vol] 4.4 10*3/uL Low 4.5-11.0 [facility] Comment on above: Performed By: #### B AUTOMATIC MACHINES SUPERVISOR, CKMB, CBC, CK, CMP, HS TROP #### [facility] [address] A1C with Estimated Average G [facility] 08-14-2021 Glucose [Mass/Vol] 105 mg/dL Normal [facility] Comment on above: Result Comment: PERF ORMED BY: [place] [id number] PATHOLOGIST [employer] I ASSEMBLER RONNIE AQUINO M.D. Performed By: #### B AUTOMATIC MACHINES SUPERVISOR, CKMB, CBC, CK, CMP, HS TROP #### [address] HbA1c (Bld) [Mass fraction] 5.3 % Normal 4.3-5.6 [facility] Comment on above: Result Comment: Incr eased risk for diabetes: 5.7 - 6.4 diabetes: >6.4 glycemic control for adults with diabetes: <7.0 Performed By: #### B AUTOMATIC MACHINES SUPERVISOR, CKMB, CBC, CK, CMP, HS TROP #### [address] Comprehensive Metabolic Pane jade 08-14-2021 Albumin [Mass/Vol] 2.9 g/dL Low 3.2-5.5 [facility] Comment on above: Performed By: #### B AUTOMATIC MACHINES SUPERVISOR, CKMB, CBC, CK, CMP, HS TROP #### [address] Albumin/Globulin [Mass ratio] 0.8 {ratio} Normal [facility] Comment on above: Performed By: #### B AUTOMATIC MACHINES SUPERVISOR, CKMB, CBC, CK, CMP, HS TROP #### [address] ALP [Catalytic activity/Vol] 44 U/L Normal 32-92 [facility] Comment on above: Performed By: #### B AUTOMATIC MACHINES SUPERVISOR, CKMB, CBC, CK, CMP, HS TROP #### [address] ALT [Catalytic activity/Vol] 15 U/L Normal 10-60 [facility] Comment on above: Performed By: #### B AUTOMATIC MACHINES SUPERVISOR, CKMB, CBC, CK, CMP, HS TROP #### [address] AST [Catalytic activity/Vol] 26 U/L Normal 10-42 [facility] Comment on above: Performed By: #### B AUTOMATIC MACHINES SUPERVISOR, CKMB, CBC, CK, CMP, HS TROP #### [address] Bilirubin [Mass/Vol] 1.1 mg/dL Normal 0.3-1.2 [facility] Comment on above: Performed By: #### B AUTOMATIC MACHINES SUPERVISOR, CKMB, CBC, CK, CMP, HS TROP #### [facility] [address] Calcium [Mass/Vol] 9.0 mg/dL Normal 8.2-10.2 [facility] Comment on above: Performed By: #### B AUTOMATIC MACHINES SUPERVISOR, CKMB, CBC, CK, CMP, HS TROP #### [facility] [address] Chloride [Moles/Vol] 106 mmol/L Normal 95-114 [facility] Comment on above: Performed By: #### B AUTOMATIC MACHINES SUPERVISOR, CKMB, CBC, CK, CMP, HS TROP #### [address] CO2 [Moles/Vol] 22.6 mmol/L Normal 22.0-30.0 [facility] Comment on above: Performed By: #### B AUTOMATIC MACHINES SUPERVISOR, CKMB, CBC, CK, CMP, HS TROP #### [address] Creatinine [Mass/Vol] 0.80 mg/dL Normal 0.44-1.03 [facility] Comment on above: Performed By: #### B AUTOMATIC MACHINES SUPERVISOR, CKMB, CBC, CK, CMP, HS TROP #### [place] [address] [place] Creatinine Clr Calc Pharmacy 85.08 [facility] Comment on above: Result Comment: PERF ORMED BY: [place] [id number] PATHOLOGIST [employer] I ASSEMBLER RONNIE AQUINO M.D. Performed By: #### B AUTOMATIC MACHINES SUPERVISOR, CKMB, CBC, CK, CMP, HS TROP #### [place] [address] [place] Estimated GFR ( Rin > [address] [facility] Comment on above: Result Comment: GFR estimated reference range: According to KDOQI guidelines, <60 ml/min/1.73m2 is sufficient to diagnose a patient with chronic kidney disease. Performed By: #### B AUTOMATIC MACHINES SUPERVISOR, CKMB, CBC, CK, CMP, HS TROP #### [facility] [address] Estimated GFR (Non- Am > [address] [facility] Comment on above: Performed By: #### B AUTOMATIC MACHINES SUPERVISOR, CKMB, CBC, CK, CMP, HS TROP #### [facility] [address] Globulin (S) [Mass/Vol] 3.5 g/dL Normal [facility] Comment on above: Performed By: #### B AUTOMATIC MACHINES SUPERVISOR, CKMB, CBC, CK, CMP, HS TROP #### [facility] [address] Glucose [Mass/Vol] 90 mg/dL Normal 70-100 [facility] Comment on above: Result Comment: [place] Glucose Reference Range is dependent on time and content of last meal. Glucose of more than 200 mg/dL in a nonstressed, ambulatory subject supports the diagnosis of Diabetes Mellitus. ADA recommended reference range Performed By: #### B AUTOMATIC MACHINES SUPERVISOR, CKMB, CBC, CK, CMP, HS TROP #### [facility] [address] Potassium [Moles/Vol] 4.0 mmol/L Normal 3.5-5.1 [facility] Comment on above: Performed By: #### B AUTOMATIC MACHINES SUPERVISOR, CKMB, CBC, CK, CMP, HS TROP #### [facility] [address] Protein [Mass/Vol] 6.4 g/dL Normal 6.1-7.9 [facility] Comment on above: Performed By: #### B AUTOMATIC MACHINES SUPERVISOR, CKMB, CBC, CK, CMP, HS TROP #### [facility] [address] Sodium [Moles/Vol] 139 mmol/L Normal 136-146 [facility] Comment on above: Performed By: #### B AUTOMATIC MACHINES SUPERVISOR, CKMB, CBC, CK, CMP, HS TROP #### [facility] [address] [place] [address] [place] Urea nitrogen [Mass/Vol] 17 mg/dL Normal 9-23 [facility] Comment on above: Performed By: #### B AUTOMATIC MACHINES SUPERVISOR, CKMB, CBC, CK, CMP, HS TROP #### [address] Diff and CBCon 08-14-2021 Band form neutrophils/100 WBC (Bld) 9 % High 0-5 [facility] Comment on above: Performed By: #### B AUTOMATIC MACHINES SUPERVISOR, CKMB, CBC, CK, CMP, HS TROP #### [address] Erythrocyte distribution width (RBC) [Ratio] 13.0 % Normal 11.9-15.3 [facility] Comment on above: Performed By: #### B AUTOMATIC MACHINES SUPERVISOR, CKMB, CBC, CK, CMP, HS TROP #### [address] Hematocrit (Bld) [Volume fraction] 36.8 % Normal 34.0-46.4 [facility] Comment on above: Performed By: #### B AUTOMATIC MACHINES SUPERVISOR, CKMB, CBC, CK, CMP, HS TROP #### [address] Hemoglobin (Bld) [Mass/Vol] 12.9 g/dL Normal 11.8-15.4 [facility] Comment on above: Performed By: #### B AUTOMATIC MACHINES SUPERVISOR, CKMB, CBC, CK, CMP, HS TROP #### [address] Lymphocytes/100 WBC (Bld) 17 % Low 18-42 [facility] Comment on above: Performed By: #### B AUTOMATIC MACHINES SUPERVISOR, CKMB, CBC, CK, CMP, HS TROP #### [address] MCH (RBC) [Entitic mass] 30.7 pg Normal 24.7-34.3 [facility] Comment on above: Performed By: #### B AUTOMATIC MACHINES SUPERVISOR, CKMB, CBC, CK, CMP, HS TROP #### [address] MCV (RBC) [Entitic vol] 87.5 fL Normal 80-100 [facility] Comment on above: Performed By: #### B AUTOMATIC MACHINES SUPERVISOR, CKMB, CBC, CK, CMP, HS TROP #### [facility] [address] Mean Corpuscular HGB Conc 35.0 g/dL Normal 32.0-35.0 [facility] Comment on above: Performed By: #### B AUTOMATIC MACHINES SUPERVISOR, CKMB, CBC, CK, CMP, HS TROP #### [facility] [address] Metamyelocytes 2 % High 0-0 [facility] Comment on above: Performed By: #### B AUTOMATIC MACHINES SUPERVISOR, CKMB, CBC, CK, CMP, HS TROP #### [address] Monocytes/100 WBC (Bld) 6 % Normal 2-11 [facility] Comment on above: Performed By: #### B AUTOMATIC MACHINES SUPERVISOR, CKMB, CBC, CK, CMP, HS TROP #### [address] Nucleated RBC/100 WBC (Bld) [Ratio] 0.1 % Normal 0-0.5 [facility] Comment on above: Result Comment: PERF ORMED BY: [place] [id number] PATHOLOGIST [employer] I ASSEMBLER RONNIE AQUINO M.D. Performed By: #### B AUTOMATIC MACHINES SUPERVISOR, CKMB, CBC, CK, CMP, HS TROP #### [address] Platelet Estimate Normal Normal Normal [facility] Comment on above: Performed By: #### B AUTOMATIC MACHINES SUPERVISOR, CKMB, CBC, CK, CMP, HS TROP #### [facility] [address] Platelet mean volume (Bld) [Entitic vol] 7.4 fL Normal 6.3-10.7 [facility] Comment on above: Performed By: #### B AUTOMATIC MACHINES SUPERVISOR, CKMB, CBC, CK, CMP, HS TROP #### [address] Platelet Morphology Normal Normal Normal [facility] Comment on above: Result Comment: PERF ORMED BY: [place] [id number] PATHOLOGIST [employer] I ASSEMBLER RONNIE AQUINO M.D. Performed By: #### B AUTOMATIC MACHINES SUPERVISOR, CKMB, CBC, CK, CMP, HS TROP #### [address] Platelets (Bld) [#/Vol] 212 10*3/uL Normal 150-450 [facility] Comment on above: Performed By: #### B AUTOMATIC MACHINES SUPERVISOR, CKMB, CBC, CK, CMP, HS TROP #### [address] RBC (Bld) [#/Vol] 4.21 10*6/uL Normal 3.60-5.00 [facility] Comment on above: Performed By: #### B AUTOMATIC MACHINES SUPERVISOR, CKMB, CBC, CK, CMP, HS TROP #### [address] RBC morphology finding Nom (Bld) Normal Normal [facility] Comment on above: Performed By: #### B AUTOMATIC MACHINES SUPERVISOR, CKMB, CBC, CK, CMP, HS TROP #### [address] Segmented neutrophils/100 WBC (Bld) 66 % Normal 50-70 [facility] Comment on above: Performed By: #### B AUTOMATIC MACHINES SUPERVISOR, CKMB, CBC, CK, CMP, HS TROP #### [address] WBC (Bld) [#/Vol] 5.6 10*3/uL Normal 4.5-11.0 [facility] Comment on above: Performed By: #### B AUTOMATIC MACHINES SUPERVISOR, CKMB, CBC, CK, CMP, HS TROP #### [address] B-Type Natriuretic Peptideon 08-13-2021 Natriuretic peptide B (Bld) [Mass/Vol] 79.0 pg/mL Normal 5-100 [facility] Comment on above: Result Comment: PERF ORMED BY: [place] [id number] PATHOLOGIST [employer] I ASSEMBLER RONNIE AQUINO M.D. Performed By: #### B AUTOMATIC MACHINES SUPERVISOR, CKMB, CBC, CK, CMP, HS TROP #### [address] Complete Blood Count Auto Di ffon 08-13-2021 Basophils (Bld) [#/Vol] 0.0 10*3/uL Normal 0.0-0.2 [facility] Comment on above: Result Comment: PERF ORMED BY: [place] [id number] PATHOLOGIST [employer] I ASSEMBLER RONNIE AQUINO M.D. Performed By: #### B AUTOMATIC MACHINES SUPERVISOR, CKMB, CBC, CK, CMP, HS TROP #### [address] Basophils/100 WBC (Bld) 0.1 % Normal . [facility] Comment on above: Performed By: #### B AUTOMATIC MACHINES SUPERVISOR, CKMB, CBC, CK, CMP, HS TROP #### [address] Eosinophils (Bld) [#/Vol] 0.0 10*3/uL Normal 0.0-0.45 [facility] Comment on above: Performed By: #### B AUTOMATIC MACHINES SUPERVISOR, CKMB, CBC, CK, CMP, HS TROP #### [address] Eosinophils/100 WBC (Bld) 0.0 % Normal . [facility] Comment on above: Performed By: #### B AUTOMATIC MACHINES SUPERVISOR, CKMB, CBC, CK, CMP, HS TROP #### [address] Erythrocyte distribution width (RBC) [Ratio] 13.1 % Normal 11.9-15.3 [facility] Comment on above: Performed By: #### B AUTOMATIC MACHINES SUPERVISOR, CKMB, CBC, CK, CMP, HS TROP #### [address] Hematocrit (Bld) [Volume fraction] 37.8 % Normal 34.0-46.4 [facility] Comment on above: Performed By: #### B AUTOMATIC MACHINES SUPERVISOR, CKMB, CBC, CK, CMP, HS TROP #### [address] Hemoglobin (Bld) [Mass/Vol] 13.1 g/dL Normal 11.8-15.4 [facility] Comment on above: Performed By: #### B AUTOMATIC MACHINES SUPERVISOR, CKMB, CBC, CK, CMP, HS TROP #### [address] Lymphocytes (Bld) [#/Vol] 0.4 10*3/uL Low 1.00-4.8 [facility] Comment on above: Performed By: #### B AUTOMATIC MACHINES SUPERVISOR, CKMB, CBC, CK, CMP, HS TROP #### [address] Lymphocytes/100 WBC (Bld) 4.2 % Normal . [facility] Comment on above: Performed By: #### B AUTOMATIC MACHINES SUPERVISOR, CKMB, CBC, CK, CMP, HS TROP #### [address] MCH (RBC) [Entitic mass] 30.1 pg Normal 24.7-34.3 [facility] Comment on above: Performed By: #### B AUTOMATIC MACHINES SUPERVISOR, CKMB, CBC, CK, CMP, HS TROP #### [address] MCV (RBC) [Entitic vol] 86.4 fL Normal 80-100 [facility] Comment on above: Performed By: #### B AUTOMATIC MACHINES SUPERVISOR, CKMB, CBC, CK, CMP, HS TROP #### [address] Mean Corpuscular HGB Conc 34.8 g/dL Normal 32.0-35.0 [facility] Comment on above: Performed By: #### B AUTOMATIC MACHINES SUPERVISOR, CKMB, CBC, CK, CMP, HS TROP #### [address] Monocytes (Bld) [#/Vol] 0.3 10*3/uL Normal 0.0-0.8 [facility] Comment on above: Performed By: #### B AUTOMATIC MACHINES SUPERVISOR, CKMB, CBC, CK, CMP, HS TROP #### [address] Monocytes/100 WBC (Bld) 3.8 % Normal . [facility] Comment on above: Performed By: #### B [employer] SUPERVISOR, CKMB, CBC, CK, CMP, HS TROP #### [address] Neutrophils (Bld) [#/Vol] 8.2 10*3/uL High 1.8-7.7 [facility] Comment on above: Performed By: #### B [employer] SUPERVISOR, CKMB, CBC, CK, CMP, HS TROP #### [address] Neutrophils/100 WBC (Bld) 91.9 % Normal . [facility] Comment on above: Performed By: #### B [employer] SUPERVISOR, CKMB, CBC, CK, CMP, HS TROP #### [address] Nucleated RBC/100 WBC (Bld) [Ratio] 0.1 % Normal 0-0.5 [facility] Comment on above: Performed By: #### B AUTOMATIC MACHINES SUPERVISOR, CKMB, CBC, CK, CMP, HS TROP #### [address] Platelet mean volume (Bld) [Entitic vol] 7.4 fL Normal 6.3-10.7 [facility] Comment on above: Performed By: #### B AUTOMATIC MACHINES SUPERVISOR, CKMB, CBC, CK, CMP, HS TROP #### [address] Platelets (Bld) [#/Vol] 193 10*3/uL Significant change down 150-450 [facility] Comment on above: Performed By: #### B AUTOMATIC MACHINES SUPERVISOR, CKMB, CBC, CK, CMP, HS TROP #### [facility] [address] RBC (Bld) [#/Vol] 4.37 10*6/uL Normal 3.60-5.00 [facility] Comment on above: Performed By: #### B AUTOMATIC MACHINES SUPERVISOR, CKMB, CBC, CK, CMP, HS TROP #### [facility] [address] WBC (Bld) [#/Vol] 8.9 10*3/uL Normal 4.5-11.0 [facility] Comment on above: Performed By: #### B AUTOMATIC MACHINES SUPERVISOR, CKMB, CBC, CK, CMP, HS TROP #### [facility] [address] Comprehensive Metabolic Pane jade 08-13-2021 Albumin [Mass/Vol] 3.2 g/dL Normal 3.2-5.5 [facility] Comment on above: Performed By: #### B AUTOMATIC MACHINES SUPERVISOR, CKMB, CBC, CK, CMP, HS TROP #### [facility] [address] Albumin/Globulin [Mass ratio] 0.9 {ratio} Normal [facility] Comment on above: Performed By: #### B AUTOMATIC MACHINES SUPERVISOR, CKMB, CBC, CK, CMP, HS TROP #### [facility] [address] ALP [Catalytic activity/Vol] 45 U/L Normal 32-92 [facility] Comment on above: Performed By: #### B AUTOMATIC MACHINES SUPERVISOR, CKMB, CBC, CK, CMP, HS TROP #### [facility] [address] ALT [Catalytic activity/Vol] 21 U/L Normal 10-60 [facility] Comment on above: Performed By: #### B AUTOMATIC MACHINES SUPERVISOR, CKMB, CBC, CK, CMP, HS TROP #### [facility] [address] AST [Catalytic activity/Vol] 29 U/L Normal 10-42 [facility] Comment on above: Performed By: #### B AUTOMATIC MACHINES SUPERVISOR, CKMB, CBC, CK, CMP, HS TROP #### [facility] [address] Bilirubin [Mass/Vol] 1.2 mg/dL Normal 0.3-1.2 [facility] Comment on above: Performed By: #### B AUTOMATIC MACHINES SUPERVISOR, CKMB, CBC, CK, CMP, HS TROP #### [facility] [address] Calcium [Mass/Vol] 9.1 mg/dL Normal 8.2-10.2 [facility] Comment on above: Performed By: #### B AUTOMATIC MACHINES SUPERVISOR, CKMB, CBC, CK, CMP, HS TROP #### [facility] [address] Chloride [Moles/Vol] 105 mmol/L Normal 95-114 [facility] Comment on above: Performed By: #### B AUTOMATIC MACHINES SUPERVISOR, CKMB, CBC, CK, CMP, HS TROP #### [address] CO2 [Moles/Vol] 19.3 mmol/L Low 22.0-30.0 [facility] Comment on above: Performed By: #### B AUTOMATIC MACHINES SUPERVISOR, CKMB, CBC, CK, CMP, HS TROP #### [address] Creatinine [Mass/Vol] 0.83 mg/dL Normal 0.44-1.03 [facility] Comment on above: Performed By: #### B AUTOMATIC MACHINES SUPERVISOR, CKMB, CBC, CK, CMP, HS TROP #### [address] Creatinine Clr Calc Pharmacy 82.94 [facility] Comment on above: Result Comment: PERF ORMED BY: [place] [id number] PATHOLOGIST [employer] I ASSEMBLER RONNIE AQUINO M.D. Performed By: #### B AUTOMATIC MACHINES SUPERVISOR, CKMB, CBC, CK, CMP, HS TROP #### [address] Estimated GFR ( Rin > [address] [facility] Comment on above: Result Comment: GFR estimated reference range: According to KDOQI guidelines, <60 ml/min/1.73m2 is sufficient to diagnose a patient with chronic kidney disease. Performed By: #### B AUTOMATIC MACHINES SUPERVISOR, CKMB, CBC, CK, CMP, HS TROP #### [facility] [address] [place] [address] [place] Estimated GFR (Non- Am > [address] [facility] Comment on above: Performed By: #### B AUTOMATIC MACHINES SUPERVISOR, CKMB, CBC, CK, CMP, HS TROP #### [facility] [address] [place] [address] [place] Globulin (S) [Mass/Vol] 3.6 g/dL Normal [facility] Comment on above: Performed By: #### B AUTOMATIC MACHINES SUPERVISOR, CKMB, CBC, CK, CMP, HS TROP #### [facility] [address] Glucose [Mass/Vol] 114 mg/dL High 70-100 [facility] Comment on above: Result Comment: [place] Glucose Reference Range is dependent on time and content of last meal. Glucose of more than 200 mg/dL in a nonstressed, ambulatory subject supports the diagnosis of Diabetes Mellitus. ADA recommended reference range Performed By: #### B AUTOMATIC MACHINES SUPERVISOR, CKMB, CBC, CK, CMP, HS TROP #### [facility] [address] Potassium [Moles/Vol] 4.0 mmol/L Normal 3.5-5.1 [facility] Comment on above: Performed By: #### B AUTOMATIC MACHINES SUPERVISOR, CKMB, CBC, CK, CMP, HS TROP #### [facility] [address] [place] [address] [place] Protein [Mass/Vol] 6.8 g/dL Normal 6.1-7.9 [facility] Comment on above: Performed By: #### B AUTOMATIC MACHINES SUPERVISOR, CKMB, CBC, CK, CMP, HS TROP #### [facility] [address] [place] [address] [place] Sodium [Moles/Vol] 140 mmol/L Normal 136-146 [facility] Comment on above: Performed By: #### B AUTOMATIC MACHINES SUPERVISOR, CKMB, CBC, CK, CMP, HS TROP #### [facility] [address] Urea nitrogen [Mass/Vol] 11 mg/dL Normal 9-23 [facility] Comment on above: Performed By: #### B AUTOMATIC MACHINES SUPERVISOR, CKMB, CBC, CK, CMP, HS TROP #### [facility] [address] Creatine Kinaseon 08-13-2021 CK [Catalytic activity/Vol] 116 U/L Normal 22-269 [facility] Comment on above: Performed By: #### B AUTOMATIC MACHINES SUPERVISOR, CKMB, CBC, CK, CMP, HS TROP #### [address] Creatinine Kinase MBon 08-13 CK.MB [Mass/Vol] 0.6 ng/mL Normal 0.6-6.3 [facility] Comment on above: Performed By: #### B AUTOMATIC MACHINES SUPERVISOR, CKMB, CBC, CK, CMP, HS TROP #### [address] CKMB Relative Index 0.5 % Normal 0.00-2.50 [facility] Comment on above: Performed By: #### B AUTOMATIC MACHINES SUPERVISOR, CKMB, CBC, CK, CMP, HS TROP #### [address] D-Dimer High Sensitivityon 1 10-13-2020 D-Dimer High Sensitivity 305 ng/mL High 0-243 [facility] Comment on above: Result Comment: The reference range for D-dimer is <243 ng/mL D-dimer units. D-dimer results must be used in conjunction with a clinical pretest probability (PTP) assessment model for deep vein thrombosis (DVT) and pulmonary embolism (PE). Results <230 ng/mL d-dimer units can be used as a negative predictor in patients with low or moderate probability for DVT/PE. Results above the exclusion threshold of 230 ng/ml D-dimer units for DVT/PE may indicate the need for further diagnostic testing. D-Dimer can be increased in hospitalized patients due to co-morbid conditions. PERFORMED BY: [address] [id number] PATHOLOGIST [employer] I ASSEMBLER RONNIE AQUINO M.D. Performed By: #### B AUTOMATIC MACHINES SUPERVISOR, CKMB, CBC, CK, CMP, HS TROP #### [place] [id number] [facility] ECG 12 lead ECGon 08-13-2021 ECG 12 lead ECG [facility] [place] [address] [place] [address] Electrocardiograph Report Signed Patient: Vanita Cardona MR#: [id number] : 1970 Acct:[id number] Age/Sex: 51 / F ADM Date: 08/13/21 Loc: Room: [address] [place] [address] Type: ADM IN Attending Dr: Pretty Rosales MD Ordering Provider: Bandar Robles DO Date of Service: 08/13/21 ECG/ECG 12 lead ECG: Shortness of Breath/Dyspnea Copies to: Test Reason : Blood Pressure : / mmHG Vent. Rate : 095 BPM Atrial Rate : 095 BPM P-R Int : 120 ms QRS Dur : 078 ms QT Int : 328 ms P-R-T Axes : 029 019 030 degrees QTc Int : 412 ms Normal sinus rhythm Low voltage QRS Borderline ECG No previous ECGs available Confirmed by BANDAR ROBLES DO ([id number]) on 08/13/2021 4:03:23 PM Referred By: Electronically Signed By:BANDAR ROBLES DO Transcribed By: MUS Signed By Bandar Robles DO 1603 [facility] Prothrombin Time INRon 08-13 INR Coag (PPP) [Relative time] 1.3 {INR} [facility] Comment on above: Result Comment: INR Therapeutic Range A) Pre- and Peroperative OAT started two weeks before surgery. NOT HIP SURGERY: 1.5 - 2.5 HIP SURGERY: 2 - 3 B) Primary and secondary prevention of venous THROMBOSIS: 2 - 3 C) Active venous thrombosis, pulmonary embolism and prevention of recurrent venous thrombosis: 2 - 3 D) Prevention of arterial thromboembolism including patients with mechanical heart valves: 3 - 4.5 PERFORMED BY: [place] [id number] PATHOLOGIST [employer]ESS[employer] I ASSEMBLER RONNIE AQUINO M.D. Performed By: #### B AUTOMATIC MACHINES SUPERVISOR, CKMB, CBC, CK, CMP, HS TROP #### [place] [id number] [facility] PT Coag (PPP) [Time] 14.1 s High 9.0-12.9 [facility] Comment on above: Performed By: #### B AUTOMATIC MACHINES SUPERVISOR, CKMB, CBC, CK, CMP, HS TROP #### [place] [id number] [facility] Troponin I High Sensitivityo n 08-13-2021 Troponin I High Sensitivity 8 pg/mL Normal 0-15 [facility] Comment on above: Result Comment: PERF ORMED BY: [place] [id number] PATHOLOGIST E[employer]ESS[employer] I ASSEMBLER RONNIE AQUINO M.D. Performed By: #### B AUTOMATIC MACHINES SUPERVISOR, CKMB, CBC, CK, CMP, HS TROP #### [place] [id number] [facility] XR chest 1V portableon 08-13 XR chest 1V portable [facility] [place] [address] [place] [address] XRay Report Signed Patient: Vanita Cardona MR#: [id number] : 1970 Acct:[id number] Age/Sex: 51 / F ADM Date: 08/13/21 Loc: ER Room: Type: [facility] ER Attending Dr: Ordering Provider: Bandar Robles DO Date of Service: 08/13/21 XR/XR chest 1V portable: Shortness of Breath/Dyspnea Copies to: Bandar Robles DO PORTABLE CHEST(0942 hours): CLINICAL HISTORY: Shortness of breath, low pulse oximetry. COVID positive. COMPARISON: 08/03/2021 FINDINGS: A single AP portable view of the chest was obtained in sitting position. The transverse diameter of the cardiopericardial silhouette is unremarkable. There is no pneumothorax or pulmonary congestion. Moderate patchy groundglass opacities are again noted at the lung bases, more on the left, with mildly increased interstitial markings consistent with the atypical pneumonia. These are not significantly changed. There is no significant pleural effusion. Electrocardiographic leads are shown. The bony thorax appears intact. XR/XR chest 1V portable IMPRESSION: REDEMONSTRATION OF ATYPICAL PNEUMONIA, NO SIGNIFICANT INTERVAL CHANGE. Impression dictated by: Stephon Schaeffer M.D.08/13/2021 10:11 AM Dictation Location: RADIO-PC-13 Transcribed By: [facility] 08/13/21 1011 Dictated By: Stephon Schaeffer MD 08/13/21 1006 Signed By: 08/13/[address] [facility] B-Type Natriuretic Peptideon 08-11-2021 Natriuretic peptide B (Bld) [Mass/Vol] 45.0 pg/mL Normal 5-100 [facility] Comment on above: Result Comment: PERF ORMED BY: [place] [address] PATHOLOGIST E[employer] ACC[employer] I ASSEMBLER RONNIE AQUINO M.D. Performed By: #### B AUTOMATIC MACHINES SUPERVISOR, CKMB, CBC, CK, CMP, HS TROP #### [facility] [address] [place] [address] COVID-19 Antigenon 1 COVID-19 Antigen Results called at 1207 on 08/11/21. Healthcare Worker?: N Parul Reference Parul Reference Negative Parul Blank COVID19 Pos Results Positive results will only be called to COVID19 Det Results Providers for the following groups of patients: COVID19 Pos Results Pre-Surgical Testing, Emergency Room, and Inpatients. Parul Blank SARS-CoV+SARS-CoV-2 (COVID-19) Ag [Presence] in Respiratory specimen by Rapid immunoassay Positive for SARS Antigen by WOLF Parul Disclaimer The Parul SARS Antigen WOLF does not differentiate Parul Disclaimer between SARS-CoV and SARS-CoV-2. COVID19 Blank Space -------- Parul Disclaimer This test was developed and its performance Parul Disclaimer characteristic determined by [facility] and Parul Disclaimer validated at [facility]. This Parul Disclaimer test has not been FDA cleared or approved. This Parul Disclaimer test has been authorized by FDA under an Emergency Use Parul Disclaimer Authorization (EUA). This test has been validated Parul Disclaimer in accordance with the FDA's Guidance Document (Policy Parul Disclaimer for Diagnostics Testing in Laboratories Certified to Parul Disclaimer Perform High Complexity Testing under CLIA prior to Parul Disclaimer Emergency Use Authorization for Coronavirus Parul Disclaimer iseas during the Public Health Emergency) Parul Disclaimer issued on December 15, 2019. This test is only authorized Praul Disclaimer for the duration of time the declaration that Parul Disclaimer circumstances exist justifying the authorization of Parul Disclaimer the emergency use of in vitro diagnostic tests for Parul Disclaimer detection of SARS-CoV-2 virus and/or diagnosis of Parul Disclaimer COVID-19 infection under section 564(b)(1) of the Parul Disclaimer Act, 21 U.S.C. 360bbb-3(b)(1), unless the Parul Disclaimer authorization is terminated or revoked sooner. PERFORMED BY: [place] [id number] PATHOLOGIST E[employer] ACC[employer] I ASSEMBLER RONNIE AQUINO M.D. Normal [facility] Comment on above: Performed By: #### C OVID-19 PARUL SOFIAPOS #### [address] Complete Blood Count Auto Di ffon 08-11-2021 Basophils (Bld) [#/Vol] 0.0 10*3/uL Normal 0.0-0.2 [facility] Comment on above: Result Comment: PERF ORMED BY: [place] [address] PATHOLOGIST E[employer] ACC[employer] I ASSEMBLER RONNIE AQUINO M.D. Performed By: #### B AUTOMATIC MACHINES SUPERVISOR, CKMB, CBC, CK, CMP, HS TROP #### [address] Basophils/100 WBC (Bld) 0.2 % Normal . [facility] Comment on above: Performed By: #### B AUTOMATIC MACHINES SUPERVISOR, CKMB, CBC, CK, CMP, HS TROP #### [address] Eosinophils (Bld) [#/Vol] 0.0 10*3/uL Normal 0.0-0.45 [facility] Comment on above: Performed By: #### B AUTOMATIC MACHINES SUPERVISOR, CKMB, CBC, CK, CMP, HS TROP #### [address] Eosinophils/100 WBC (Bld) 0.0 % Normal . [facility] Comment on above: Performed By: #### B AUTOMATIC MACHINES SUPERVISOR, CKMB, CBC, CK, CMP, HS TROP #### [address] Erythrocyte distribution width (RBC) [Ratio] 12.8 % Normal 11.9-15.3 [facility] Comment on above: Performed By: #### B AUTOMATIC MACHINES SUPERVISOR, CKMB, CBC, CK, CMP, HS TROP #### [address] Hematocrit (Bld) [Volume fraction] 39.9 % Normal 34.0-46.4 [facility] Comment on above: Performed By: #### B AUTOMATIC MACHINES SUPERVISOR, CKMB, CBC, CK, CMP, HS TROP #### [address] Hemoglobin (Bld) [Mass/Vol] 13.5 g/dL Normal 11.8-15.4 [facility] Comment on above: Performed By: #### B AUTOMATIC MACHINES SUPERVISOR, CKMB, CBC, CK, CMP, HS TROP #### [address] Lymphocytes (Bld) [#/Vol] 0.6 10*3/uL Low 1.00-4.8 [facility] Comment on above: Performed By: #### B AUTOMATIC MACHINES SUPERVISOR, CKMB, CBC, CK, CMP, HS TROP #### [address] Lymphocytes/100 WBC (Bld) 11.1 % Normal . [facility] Comment on above: Performed By: #### B AUTOMATIC MACHINES SUPERVISOR, CKMB, CBC, CK, CMP, HS TROP #### [address] MCH (RBC) [Entitic mass] 29.5 pg Normal 24.7-34.3 [facility] Comment on above: Performed By: #### B AUTOMATIC MACHINES SUPERVISOR, CKMB, CBC, CK, CMP, HS TROP #### [address] MCV (RBC) [Entitic vol] 87.2 fL Normal 80-100 [facility] Comment on above: Performed By: #### B AUTOMATIC MACHINES SUPERVISOR, CKMB, CBC, CK, CMP, HS TROP #### [address] Mean Corpuscular HGB Conc 33.9 g/dL Normal 32.0-35.0 [facility] Comment on above: Performed By: #### B AUTOMATIC MACHINES SUPERVISOR, CKMB, CBC, CK, CMP, HS TROP #### [address] Monocytes (Bld) [#/Vol] 0.2 10*3/uL Normal 0.0-0.8 [facility] Comment on above: Performed By: #### B AUTOMATIC MACHINES SUPERVISOR, CKMB, CBC, CK, CMP, HS TROP #### [address] Monocytes/100 WBC (Bld) 3.3 % Normal . [facility] Comment on above: Performed By: #### B AUTOMATIC MACHINES SUPERVISOR, CKMB, CBC, CK, CMP, HS TROP #### [facility] [address] [place] [address] [place] Neutrophils (Bld) [#/Vol] 4.5 10*3/uL Normal 1.8-7.7 [facility] Comment on above: Performed By: #### B AUTOMATIC MACHINES SUPERVISOR, CKMB, CBC, CK, CMP, HS TROP #### [facility] [address] Neutrophils/100 WBC (Bld) 85.4 % Normal . [facility] Comment on above: Performed By: #### B AUTOMATIC MACHINES SUPERVISOR, CKMB, CBC, CK, CMP, HS TROP #### [place] [address] [place] Nucleated RBC/100 WBC (Bld) [Ratio] 0.2 % Normal 0-0.5 [facility] Comment on above: Performed By: #### B AUTOMATIC MACHINES SUPERVISOR, CKMB, CBC, CK, CMP, HS TROP #### [address] Platelet mean volume (Bld) [Entitic vol] 8.0 fL Normal 6.3-10.7 [facility] Comment on above: Performed By: #### B AUTOMATIC MACHINES SUPERVISOR, CKMB, CBC, CK, CMP, HS TROP #### [place] [address] [place] Platelets (Bld) [#/Vol] 137 10*3/uL Low 150-450 [facility] Comment on above: Performed By: #### B AUTOMATIC MACHINES SUPERVISOR, CKMB, CBC, CK, CMP, HS TROP #### [place] [address] [place] RBC (Bld) [#/Vol] 4.58 10*6/uL Normal 3.60-5.00 [facility] Comment on above: Performed By: #### B AUTOMATIC MACHINES SUPERVISOR, CKMB, CBC, CK, CMP, HS TROP #### [place] [address] [place] WBC (Bld) [#/Vol] 5.2 10*3/uL Normal 4.5-11.0 [facility] Comment on above: Performed By: #### B AUTOMATIC MACHINES SUPERVISOR, CKMB, CBC, CK, CMP, HS TROP #### [address] Comprehensive Metabolic Pane jade 08-11-2021 Albumin [Mass/Vol] 3.6 g/dL Normal 3.2-5.5 [facility] Comment on above: Performed By: #### B AUTOMATIC MACHINES SUPERVISOR, CKMB, CBC, CK, CMP, HS TROP #### [address] Albumin/Globulin [Mass ratio] 1.3 {ratio} Normal [facility] Comment on above: Performed By: #### B AUTOMATIC MACHINES SUPERVISOR, CKMB, CBC, CK, CMP, HS TROP #### [address] ALP [Catalytic activity/Vol] 43 U/L Normal 32-92 [facility] Comment on above: Performed By: #### B AUTOMATIC MACHINES SUPERVISOR, CKMB, CBC, CK, CMP, HS TROP #### [address] ALT [Catalytic activity/Vol] 22 U/L Normal 10-60 [facility] Comment on above: Performed By: #### B AUTOMATIC MACHINES SUPERVISOR, CKMB, CBC, CK, CMP, HS TROP #### [address] AST [Catalytic activity/Vol] 32 U/L Normal 10-42 [facility] Comment on above: Performed By: #### B AUTOMATIC MACHINES SUPERVISOR, CKMB, CBC, CK, CMP, HS TROP #### [address] Bilirubin [Mass/Vol] 0.9 mg/dL Normal 0.3-1.2 [facility] Comment on above: Performed By: #### B AUTOMATIC MACHINES SUPERVISOR, CKMB, CBC, CK, CMP, HS TROP #### [address] Calcium [Mass/Vol] 8.6 mg/dL Normal 8.2-10.2 [facility] Comment on above: Performed By: #### B AUTOMATIC MACHINES SUPERVISOR, CKMB, CBC, CK, CMP, HS TROP #### [address] Chloride [Moles/Vol] 104 mmol/L Normal 95-114 [facility] Comment on above: Performed By: #### B AUTOMATIC MACHINES SUPERVISOR, CKMB, CBC, CK, CMP, HS TROP #### [address] CO2 [Moles/Vol] 21.1 mmol/L Low 22.0-30.0 [facility] Comment on above: Performed By: #### B AUTOMATIC MACHINES SUPERVISOR, CKMB, CBC, CK, CMP, HS TROP #### [address] Creatinine [Mass/Vol] 0.94 mg/dL Normal 0.44-1.03 [facility] Comment on above: Performed By: #### B AUTOMATIC MACHINES SUPERVISOR, CKMB, CBC, CK, CMP, HS TROP #### [address] Creatinine Clr Calc Pharmacy 72.22 [facility] Comment on above: Result Comment: PERF ORMED BY: [place] [id number] PATHOLOGIST E[employer] I ASSEMBLER RONNIE AQUINO M.D. Performed By: #### B AUTOMATIC MACHINES SUPERVISOR, CKMB, CBC, CK, CMP, HS TROP #### [address] Estimated GFR ( Rin > 60 [facility] Comment on above: Result Comment: GFR estimated reference range: According to KDOQI guidelines, <60 ml/min/1.73m2 is sufficient to diagnose a patient with chronic kidney disease. Performed By: #### B AUTOMATIC MACHINES SUPERVISOR, CKMB, CBC, CK, CMP, HS TROP #### [address] Estimated GFR (Non- Am > 60 [facility] Comment on above: Performed By: #### B AUTOMATIC MACHINES SUPERVISOR, CKMB, CBC, CK, CMP, HS TROP #### [address] Globulin (S) [Mass/Vol] 2.8 g/dL Normal [facility] Comment on above: Performed By: #### B AUTOMATIC MACHINES SUPERVISOR, CKMB, CBC, CK, CMP, HS TROP #### [facility] [address] Glucose [Mass/Vol] 107 mg/dL High 70-100 [facility] Comment on above: Result Comment: [facility] Glucose Reference Range is dependent on time and content of last meal. Glucose of more than 200 mg/dL in a nonstressed, ambulatory subject supports the diagnosis of Diabetes Mellitus. ADA recommended reference range Performed By: #### B AUTOMATIC MACHINES SUPERVISOR, CKMB, CBC, CK, CMP, HS TROP #### [address] Potassium [Moles/Vol] 3.7 mmol/L Normal 3.5-5.1 [facility] Comment on above: Performed By: #### B AUTOMATIC MACHINES SUPERVISOR, CKMB, CBC, CK, CMP, HS TROP #### [address] Protein [Mass/Vol] 6.4 g/dL Normal 6.1-7.9 [facility] Comment on above: Performed By: #### B AUTOMATIC MACHINES SUPERVISOR, CKMB, CBC, CK, CMP, HS TROP #### [address] Sodium [Moles/Vol] 137 mmol/L Normal 136-146 [facility] Comment on above: Performed By: #### B AUTOMATIC MACHINES SUPERVISOR, CKMB, CBC, CK, CMP, HS TROP #### [address] Urea nitrogen [Mass/Vol] 10 mg/dL Normal 9-23 [facility] Comment on above: Performed By: #### B AUTOMATIC MACHINES SUPERVISOR, CKMB, CBC, CK, CMP, HS TROP #### [address] Creatine Kinaseon 08-11-2021 CK [Catalytic activity/Vol] 158 U/L Normal 22-269 [facility] Comment on above: Performed By: #### B AUTOMATIC MACHINES SUPERVISOR, CKMB, CBC, CK, CMP, HS TROP #### [place] [address] [place] Creatinine Kinase MBon 08-11 CK.MB [Mass/Vol] 0.5 ng/mL Low 0.6-6.3 [facility] Comment on above: Performed By: #### B AUTOMATIC MACHINES SUPERVISOR, CKMB, CBC, CK, CMP, HS TROP #### [address] CKMB Relative Index 0.3 % Normal 0.00-2.50 [facility] Comment on above: Performed By: #### B AUTOMATIC MACHINES SUPERVISOR, CKMB, CBC, CK, CMP, HS TROP #### [address] Parul Ag Positiveon 08-11-20 21 Parul Ag Positive Positive Critically abnormal Negative [facility] Comment on above: Result Comment: This is a duplicate Parul SARS Antigen (WOLF) result to be used for statistical tracking purpose only. PERFORMED BY: [place] [id number] PATHOLOGIST E[employer] I ASSEMBLER RONNIE AQUINO M.D. Performed By: #### C OVID-19 PARUL, SOFIAPOS #### [address] Troponin I High Sensitivityo n 08-11-2021 Troponin I High Sensitivity 6 pg/mL Normal 0-15 [facility] Comment on above: Result Comment: PERF ORMED BY: [place] [id number] PATHOLOGIST E[employer] I ASSEMBLER RONNIE AQUINO M.D. Performed By: #### B AUTOMATIC MACHINES SUPERVISOR, CKMB, CBC, CK, CMP, HS TROP #### [address] XR chest 1V portableon 08-11 XR chest 1V portable [facility] [place] [address] [place] [address] XRay Report Signed Patient: Vanita Cardona MR#: [id number] : 1970 Acct:[id number] Age/Sex: 51 / F ADM Date: 08/11/21 Loc: ER Room: Type: [facility] ER Attending Dr: Ordering Provider: Bandar Robles DO Date of Service: 08/11/21 XR/XR chest 1V portable: Shortness of Breath/Dyspnea Copies to: Bandar Robles DO Plain film chestsingle view HISTORY:Shortness of breath. Covid positive. COMPARISON:None FINDINGS: The cardiac, mediastinal and hilar silhouettes are within normal limits. Moderate bilateral lower lung infiltrates present. No large pleural effusion or pneumothorax present. No large pleural effusion or pneumothorax. Bony structures are intact. XR/XR chest 1V portable IMPRESSION: Bilateral infiltrates. Impression dictated by: Lázaro Cagle M.D.08/11/2021 12:30 PM Dictation Location: [place] [address] Transcribed By: [facility] 08/11/21 1230 Dictated By: Lázaro Cagle DO 08/11/21 1229 Signed By: 08/11/21 1230 [facility] CTA CHEST WO W CONon 021 CTA CHEST WO W CON EXAMINATION: CTA [facility] WO W CON HISTORY: shortness of breath or wheezing COMPARISON: None. TECHNIQUE: CT angiography of the pulmonary arteries following the administration of 80 mL Omnipaque 350 intravenous contrast. Coronal and sagittal MIP (maximum intensity projection) images were performed. Three-dimensional rotational reconstructions were acquired of the vasculature on independent workstation. Dose reduction techniques were achieved by using automated exposure control and/or adjustment of mA and/or kV according to patient size and/or use of iterative reconstruction technique. FINDINGS: Cardiovascular: The thoracic aorta is normal in caliber. No pericardial effusion. No pulmonary embolism. Mediastinum: Right hilar lymph node 0.9 cm. Subcarinal lymph node 0.9 cm. Pulmonary: No pneumothorax. No pleural effusion. Multifocal groundglass opacities and regions of consolidation involving all lobes, most notably within the lower lobes. Osseous: No fracture. No aggressive osseous lesion. Upper abdomen: There are several cyst partially visualized within the liver the largest measuring 2.7 cm. IMPRESSION: 1. No pulmonary embolism. No thoracic aortic dissection or aneurysm. 2. Multifocal regions of groundglass opacity and consolidation consistent with multifocal pneumonia, favor a viral etiology. Electronically authenticated by: MARK CLARKE Date: 2021-08-10 19:53 Normal [facility] Coding Summary.on 02-23-2018 Coding Summary. CODING DATE: 018 FINAL [facility] STATUS: Home (Routine DC) PAYOR: Commercial Insurance ADMIT DX: REASON FOR VISIT DX: Z01.419 Encounter for gynecological examination (general) (routine) without abnormal findings FINAL DX: PRINCIPAL: Z01.419 Encounter for gynecological examination (general) (routine) without abnormal findings SECONDARY: N84.1 Polyp of cervix uteri PROCEDURES DOCTOR NAME DATE NOTE: The code number assigned matches the documented diagnosis and / or procedure in the patient's chart. However, the narrative phrase printed from the coding software may appear abbreviated, or result in slightly different terminology. Coded By: Paulina Landa Date Saved: 02/23/2018 11:31 am Normal [facility] IG PAP [id number] HPV-hron 02-22 Piercer (cervix/vaginal) Comment Invalid Interpretation Code [facility] Comment on above: Result Comment: Sofie Ruvalcaba, Microwave Oven Assembler (ASCP) Performed By: #### 1 [id number] ####[facility] [address] [place] [id number] Cytology report (cervical/vaginal) Comment Invalid Interpretation Code [facility] Comment on above: Result Comment: This liquid based ThinPrep(R) pap test was screened with theuse of an image guided system. Performed By: #### 1 [id number] ####[facility] [address] [place] [id number] Diagnosis: Comment Invalid Interpretation Code [facility] Comment on above: Result Comment: NEGA TIVE FOR INTRAEPITHELIAL LESION AND MALIGNANCY. Performed By: #### 1 [id number] ####[facility] [address] [place] [address] HPV (subset 1 of 2) Presence Negative Invalid Interpretation Code Negative [facility] Comment on above: Result Comment: This high-risk HPV test detects thirteen high- risk types(16/18/31/33/35/39/45/51/52/56/58/59/68) without differentiation.No. of containers..01 ThinPrep VialPerformed at: WB [facility] [address] Jonathan Dougherty W [id number] MD Mart HorowitzaliPerformed at: =G [facility] [address] Jonathan Dougherty, PETER [id number] MD Mart Clements Performed By: #### 1 [id number] ####[place] [address] [place] [id number] MICROSCOPIC OBSERVATION:PRID:P T:XXX:NOM:XXX STAIN . Invalid Interpretation Code [facility] Comment on above: Performed By: #### 1 [id number] ####[place] [id number] Note Comment Invalid Interpretation Code [facility] Comment on above: Result Comment: The Pap smear is a screening test designed to aid in the detection ofpremalignant and malignant conditions of the uterine cervix. It is not adiagnostic procedure and should not be used as the sole means of detectingcervical cancer. Both false-positive and false-negative reports do occur. Performed By: #### 1 [id number] ####[address] [address] Statement of adequacy (cervix/vaginal) Comment Invalid Interpretation Code [facility] Comment on above: Result Comment: Sati sfactory for evaluation. Endocervical and/or squamous metaplasticcells (endocervical component) are present. Performed By: #### 1 [id number] ####[place] [address] [place] [address] Vital Signs Date Time Vital Sign Value Performing Clinician Facility 04-13-2023 16:35-0400 Body height 167.64 cm Faiza Bruce Other [facility] Other 04-13-2023 16:35-0400 Body mass index (BMI) [Ratio] 27.15 kg/m2 Faiza Bruce Other [facility] Other 04-13-2023 16:35-0400 Body temperature 97.6 [degF] Faiza Bruce Other [facility] Other 04-13-2023 16:35-0400 Body weight 76.3 kg Faiza Bruce Other [facility] Other 04-13-2023 16:35-0400 Diastolic blood pressure 72 mm[Hg] Faiza Dukeley Other [facility] Other 04-13-2023 16:35-0400 Respiratory rate 18 /min Faiza Dukeley Other [facility] Other 04-13-2023 16:35-0400 SaO2% (BldA) [Mass fraction] 99 % Faiza Dukeley Other [facility] Other 04-13-2023 16:35-0400 Systolic blood pressure 110 mm[Hg] Faiza Bruce Other [facility] Other 06-13-2022 13:20-0400 Body height 167.64 cm Laura Arredondomond Other [facility] Other 06-13-2022 13:20-0400 Body mass index (BMI) [Ratio] 27.44 kg/m2 Laura Juliana Other [facility] Other 06-13-2022 13:20-0400 Body temperature 98 [degF] Laura Juliana Other [facility] Other 06-13-2022 13:20-0400 Body weight 77.11 kg Laura Juliana Other [facility] Other 06-13-2022 13:20-0400 Diastolic blood pressure 72 mm[Hg] Laura Andrews Other [facility] Other 06-13-2022 13:20-0400 SaO2% (BldA) [Mass fraction] 97 % Laura Andrews Other [facility] Other 06-13-2022 13:20-0400 Systolic blood pressure 104 mm[Hg] Laura Andrews Other [facility] Other Encounters Encounter Date Encounter Type Care Provider Facility Start: 10-20-2023 Telephone encounter Hamida Klever [facility] Comment on above: Med Refill Start: 10-20-2023 End: 10-20-2023 ambulatory MORIAH NYE Not Available Start: 10-19-2023 Chart abstracting Moriah Nye MD Work Phone: [facility] Start: 10-01-2023 End: 10-01-2023 ambulatory LINDSEY ARREOLA Not Available Start: 04-13-2023 End: 04-13-2023 ambulatory Faiza Bruce Other [facility] Other Start: 04-13-2023 Office outpatient vi sit 15 minutes Faiza Bruce [facility] Start: 06-13-2022 End: 06-13-2022 ambulatory Lauragayatri Andrews Other [facility] Other Start: 06-13-2022 Office outpatient ne w 20 minutes Laura Juliana [facility] Start: 08-14-2021 ambulatory LINDSEY ARREOLA Facilit y:[facility] Start: 08-10-2021 End: 08-10-2021 ambulatory ADLIA SCHWARTZ Facility:[facility] Start: 02-16-2018 End: 02-17-2018 Ambulatory Luiza Cota Facility:[facility] Procedures Date Procedure Procedure Detail Performing Clinician Start: 08-24-2023 Mammography Moriah Nye MD Work Phone: Plan of Treatment Date Care Activity Detail Author Start: 10-01-2028 Screening for malign ant neoplasm of cervix [facility] Start: 10-26-2024 End: 10-26-2024 Patient encounter procedure 10/26/2024 10:45 AM EST Office Visit [facility] [address] [place] [address] Candace Lindseyfreddy Delcid DO [address] [place] [address] [facility] Start: 08-24-2024 Screening for malign ant neoplasm of breast Mammogram [facility] Start: 03-13-2024 Influenza vaccination Influenza Vacc ine (#1) [facility] Comment on above: Postponed from 05/15 (Other Patient Reasons) Start: 10-20-2023 End: 10-20-2023 Patient encounter procedure 10/20/2023 10:15 AM EST Office Visit [facility] [address] [facility] [address] [place] [id number] Moriah Nye MD [address] [facility] [address] [place] [address] [facility] Start: 1991 Screening for malign ant neoplasm of cervix Pap Smear [facility] Start: 1970 Screening for malign ant neoplasm of colon [facility] Immunizations Immunization Date Immunization Notes Care Provider Fa cili 06-01-2018 seasonal influenza, intradermal, preservative free Moriah Nye MD Work Phone: [facility] 06-01-2018 influenza virus vacc ine, unspecified formulation Moriah Nye MD Work Phone: [facility] Payers Date Payer Category Payer Managed Care HMO (unspecified) [employer] A[employer] [id number] 2023-Present [address] [place] [id number] O [id number] 2023 Private Health Insurance [id number] 2018 Unknown 1970 Unknown [id number] 1970 Unknown [id number] 1970 Unknown [id number] 1970 Unknown [id number] 1959 Self-pay 1959 Unknown [id number] Social History Date Type Detail Facility Start: 07-06-2023 End: 10-20-2023 Sex Assigned At [facility] Start: 10-08-2023 Tobacco smoking stat [facility] Never smoked tobacco [facility] Start: 10-08-2023 Tobacco use and exposure Smoke less tobacco non-user [facility] Start: 10-19-2023 End: 10-20-2023 Alcohol intake Current drinker of alcohol (finding) [facility] Start: 07-06-2023 End: 10-20-2023 [facility] How often to you hav e a drink containing alcohol? Never [facility] How many standard dr inks containing alcohol do you have on a typical day? 1 or 2 [facility] Start: 07-06-2023 Alcohol Comment Caffeine intak e: couple a month [facility] Start: 1970 Sex Assigned At Not on file [facility] Telephone encounter Note 10-20-2023 Telephone Encounter - Hamida Ernst MA - 10/20/2023 3:34 PM EST Note Date & Type Note Facility 10-20-2023 Telephone encount er Note Vanita called stating her hyoscyamine was sent in for a refill but its the liquid form and she would like it as a tablet which she normally receives. [facility] Note 10-20-2023 Telephone Encounter - Hamida Ernst MA - 10/20/2023 3:34 PM EST Note Date & Type Note Facility 10-20-2023 Miscellaneous Notes Formattin g of this note might be different from the original. Vanita called stating her hyoscyamine was sent in for a refill but its the liquid form and she would like it as a tablet which she normally receives. documented in this encounter [facility] Evaluation note 04-13-2023 Note Date & Type Note Facility 04-13-2023 Evaluation note Encounter Date Diagnosis Assessment Notes Mar, Acute non-recurren t frontal sinusitis (ICD-10 - J01.10) Discussed possibility of allergic sinus inflammation versus bacterial sinus infection. Discontinue plain Sudafed, switch to Claritin-D 24-hour, continue Flonase. If symptoms or not gradually improving over the next 4 to 5 days, significantly worsening, fevers start printed prescription for amoxicillin. Finish entire course. Probiotic supplement encouraged. Follow-up with PCP if not gradually improving after 5 to 7 days of antibiotic. Patient verbalized understanding of treatment plan. Mar, Right ear impacted cerumen (ICD-10 - H61.21) Right ear flushed out by medical administrator, moderate sized piece of wax removed. Patient does still have small piece of paper like wax in canal but discussed this is not obstructing. Patient declines further irrigating ear canal at this time. No signs of ear infection. [facility] Other Evaluation note 06-13-2022 Note Date & Type Note Facility 06-13-2022 Evaluation note Encounter Date Diagnosis Assessment Notes May, Impacted cerumen of both ears (ICD-10 - H61.23) Cerumen impaction home care material was printed Drink plenty fluids, get plenty of rest. Do not use Q-tips on the inner part of your ears. Do not insert anything into your canals. Follow-up with your family physician for any further concerns [facility] Other History general Narrative - Reported 07-15-2021 Note Date & Type Note Facility 07-15-2021 History general N arrative - Reported Type Medical History IBS (irritable bowel syndrome) Hospitalization History covid 07/2021 [facility] Other Evaluation note Note Date & Type Note Facility Evaluation note Diagnosis Irritable bowel syndrome with diarrhea Irritable bowel syndrome documented in this encounter [facility] Summary Purpose Family History No Family History Records FoundNo Family History Records FoundNo Family History Records FoundNo Family History Records Found Advance Directives No Advanced Directives Records FoundNo Advanced Directives Records FoundNo Advanced Directives Records FoundNo Advanced Directives Records Found Additional Source Comments INFORMATION SOURCE (unrecogn ized section and content) DATE CREATED AUTHOR 03/16/2018 [facility] DATE CREATED AUTHOR AUTHOR'S ORGANIZ ATION 08/14/2021 [facility] DATE CREATED AUTHOR AUTHOR'S ORGANIZ ATION 10/09/2021 [facility] DATE CREATED AUTHOR AUTHOR'S ORGANIZ ATION 10/21/2023 [facility] EPIC REASON FOR VISIT (unrecogniz ed section and content) Reason Onset Date Comments Med Refill 10/20/2023 Care Teams (unrecognized sec tion and content) Pop Singer Relationship Specialty Start Date End Date Moriah Nye MD [address] [address] PCP - Medical [place] [employer] 02/12/23 Moriah Nye MD 112 [facility] [address] [place] [address] PCP - General Family Medicine 01/20/23 Pop Singer Relationship Specialty Start Date End Date Moriah Nye MD [address] [facility] [address] [place] [address] PCP - Medical [place] [employer] 02/12/23 Moriah Nye MD 112 [facility] [address] [place] [address] PCP - General Family Medicine 01/20/23 FOR RECORDS PERTAINING TO PATIENTS WHO ARE OR HAVE BEEN ENROLLED IN A CHEMICAL DEPENDENCY/SUBSTANCEABUSE PROGRAM, SOME INFORMATION MAY BE OMITTED. This clinical summary was aggregated from multiple sources. Caution should be exercised in using it in the provision of clinical care. This summary normalizes information from multiple sources, and as a consequence, information in this document may materially change the coding, format and clinical context of patient data. In addition, data may be omitted in some cases. CLINICAL DECISIONS SHOULD BE BASED ON THE PRIMARY CLINICAL RECORDS. [facility]. provides no warranty or guarantee of the accuracy or completeness of information in this document.
--- NOTE | 2023-11-22 07:18 | XR_ITS ---
The [address] [address] Patient Name: SHREE ACUÑA MRN: [id number] date: 1970 Sex: F Assigned Patient Location: ER Current Patient Location: ER Accession/Order Number: [id number] Exam Date: 11/22/2023 07:28 Report Date: 11/22/2023 07:38 At the request of: KRISTINA TEIXEIRA Procedure: XR chest 1V EXAMINATION: XR chest 1V HISTORY: CP COMPARISON: No relevant comparison available. FINDINGS: LUNGS: Underexpanded lungs, elevated left hemidiaphragm, and trace amount stranding within left lung base. VASCULATURE: No increased pulmonary vasculature. PLEURA: No pneumothorax, effusion, or pleural thickening. CARDIAC: No cardiomegaly or cardiac silhouette abnormality. MEDIASTINUM: No visible mass or adenopathy. BONES: No fracture or visible bone lesion. OTHER: Negative. XR/XR chest 1V IMPRESSION: 1. Low lung volume examination with trace amount of left basilar atelectasis versus infiltrates. Electronically authenticated by: BRIDGET ZAZUETA Date: 11/22/2023 07:38
--- NOTE | 2023-11-22 07:18 | ECG_ITS ---
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
[2023-11-22 07:31] LABS: Basophils Absolute Auto 0.1 10^3/uL (0.0-0.1); Basophils Percent Auto 0.8 % (0.2-2.0); Eosinophils Absolute Auto 0.3 10^3/uL (0.0-0.7); Eosinophils Percent Auto 3.8 % (0.9-7.0); Hematocrit 41.9 % (36.0-48.0); Hemoglobin 14.3 g/dL (12.0-16.0); Immature Granulocytes Abs Auto 0.02 10^3/uL (0.00-0.03); Immature Granulocytes Pct Auto 0.2 % (0.0-0.5); Lymphocytes Absolute Auto 2.3 10^3/uL (1.2-3.8); Lymphocytes Percent Auto 26.3 % (20.5-60.0); Mean Corpuscular HGB Conc 34.1 g/dL (29.9-35.2); Mean Corpuscular Hemoglobin 29.9 pg (26.7-34.0); Mean Corpuscular Volume 87.7 fL (81.0-99.0); Mean Platelet Volume 10.4 fL (9.5-13.5); Monocytes Absolute Auto 0.6 10^3/uL (0.3-0.8); Monocytes Percent Auto 7.1 % (1.7-12.0); Neutrophils Absolute Auto 5.5 10^3/uL (1.4-6.5); Neutrophils Percent Auto 61.8 % (43.0-75.0); Platelet Count 227 10^3/uL (150-450); Red Blood Count 4.78 10^6/uL (4.20-5.40); Red Cell Distribution Width 12.4 % (11.0-15.0); White Blood Count 8.9 10^3/uL (4.0-11.0)
[2023-11-22] MEDS: MORPHINE SULFATE 2 MG/ML SYRINGE IV (07:31)
[2023-11-22 07:43] LABS: Anion Gap 12.8; Calcium 8.7 mg/dL (8.5-10.1); Carbon Dioxide 27.4 mmol/L (21.0-32.0); Chloride 105 mmol/L (98-107); Estimated GFR (African America >60 (>=60); Estimated GFR (Non-African Ame >60 (>=60); Glucose 120 mg/dL (74-106); Potassium 4.2 mmol/L (3.5-5.1); Sodium 141 mmol/L (136-145); Troponin I High Sensitivity <4.0 pg/mL (4.0-51.3)
[2023-11-22 07:57] LABS: D Dimer 0.26 mg/L FEU (<=0.59)
--- NOTE | 2023-11-22 08:09 | CT_ITS ---
[address] [address] Patient Name: SHREE ACUÑA MRN: [id number] date: 1970 Sex: F Assigned Patient Location: ER Current Patient Location: ER Accession/Order Number: [id number] Exam Date: 11/22/2023 08:22 Report Date: 11/22/2023 09:20 At the request of: KRISTINA TEIXEIRA Procedure: CT angio chest CT CHEST ANGIOGRAPHY FOR PULMONARY EMBOLUS: 11/22/2023 8:22 AM EDT Clinical Data: Left lower chest pain Comparison: 08/10/2021 Contrast enhanced helically acquired data per pulmonary CTA protocol. Volumetric recons in MIP mode were generated and reviewed. FINDINGS: AXILLAE: No acute finding. SUPRACLAVICULAR: No acute finding. MEDIASTINUM: Again, an elongated enlarged anterior mediastinal node. Again, some fluid superior pericardial recess. Again, a few borderline nodes in the AP window. ROMINA: No interval change. Nonenlarged nodes in the right. Borderline node on the left. HEART: Normal in size. No pericardial effusion. VASCULAR: SYSTEMIC: No thoracic aortic aneurysm. PULMONARY: Main pulmonary artery is clear. Right and left pulmonary arteries are clear. Proximal to mid branches on each side are free of meniscal filling defects LUNGS: Bandlike atelectasis in a portion of the left lower lobe. Mild atelectasis peripheral aspects of the lingula. Mild dependent atelectasis posteriorly in the right lower lobe and fairly mild atelectasis peripheral aspects right middle lobe. PLEURA: No pleural effusion. No pneumothorax. CHEST WALL: No acute finding. BONES: No acute finding. UPPER ABD: Again, hepatic cysts. OTHER: None CT/CT angio chest IMPRESSION: 1. No evidence of acute pulmonary embolic disease. 2. Areas of atelectasis in both lungs, greatest as bandlike atelectasis in a portion of the left lower lobe. 3. No pleural effusion. Electronically authenticated by: REJI PRATER Date: 11/22/2023 09:20
--- NOTE | 2023-11-22 08:29 | ED.GENADUL1 ---
HPI - General Adult General Chief complaint: Abdominal Pain Stated complaint: Abdominal Pain Time Seen by Provider: 11/22/23 07:05 Source: patient Mode of arrival: walk-in History of Present Illness HPI narrative: 53-year-old female presents for left lower chest wall area pain. It began last night while she was sitting on it couch and she was laughing and watching TV. It was mild at that time and it got worse during the night. There was no injury. She has not had any direct trauma. She has not had a fever or cough. She does not complain of abdominal pain. She has a history of IBS but this feels completely different. The pain is moderate to severe. Related Data Previous Rx's Medication Instructions Recorded acetaminophen 300 mg-codeine 30 mg 1 tab PO Q6H PRN pain 5 days #20 11/22/23 tablet tabs ibuprofen 800 mg tablet 800 mg PO Q8H PRN pain #20 tabs 11/22/23 Allergies Allergy/AdvReac Type Severity Reaction Status Date / Time Sulfa (Sulfonamide Allergy Rash Verified 11/22/23 06:38 Antibiotics) Review of Systems ROS Narrative A ten point review of systems is negative except as noted above. PFSH PFSH Social History Smoking status: Never smoker Exam Narrative Exam Narrative: Nurses note and vital signs reviewed and patient is not hypoxic. General: The patient appears uncomfortable and is standing when I walk into the room. She reports that she feels more comfortable standing. Skin: Warm, dry, no pallor noted. There is no rash noted. Head: Normocephalic, atraumatic Eye: Normal conjunctiva, no drainage Ears, Nose, Mouth, and Throat: oral mucosa is moist. Nares patent. Cardiovascular: Regular Rate and Rhythm, chest wall is not tender and has no bruising or crepitus. Respiratory: Patient is in no distress, no accessory muscle use, lungs are clear to auscultation, no wheezing, rales or rhonchi Back: non-tender GI: Soft and nontender including no tenderness in the left upper quadrant Musculoskeletal: The patient has no evidence of calf tenderness, no pitting edema, symmetrical pulses noted bilaterally Neurological: A&O, normal speech Psychiatric: Cooperative Constitutional Vital Signs, click to edit/add: Last Vital Signs Temp 99 F 11/22/23 09:24 Pulse 93 H 11/22/23 09:24 Resp 16 11/22/23 09:24 BP 141/72 11/22/23 09:24 Pulse Ox 95 11/22/23 09:24 O2 Del Method Room Air 11/22/23 09:24 Course Vital Signs Vital signs: Vital Signs Blood Pressure 155/91 H 11/22/23 00:45 Temperature 99 F 11/22/23 09:24 Pulse Rate 93 H 11/22/23 09:24 Respiratory Rate 16 11/22/23 09:24 Blood Pressure 141/72 11/22/23 09:24 Pulse Oximetry 95 11/22/23 09:24 Oxygen Delivery Method Room Air 11/22/23 09:24 Medical Decision Making MDM Narrative Medical decision making narrative: Her workup including CTA chest shows atelectasis. She is able to be discharged home. My clinical impression at this point is that she has chest wall pain. Treatment diagnosis and follow-up were discussed with the patient Differential Diagnosis Differential Diagnosis: Pneumothorax, pneumonia, pulmonary embolism, chest wall pain Lab Data Lab results reviewed: Yes I reviewed the patient's lab results Labs: Lab Results 11/22/23 Range/Units 06:55 WBC 8.9 (4.0-11.0) 10^3/uL RBC 4.78 (4.20-5.40) 10^6/uL Hgb 14.3 (12.0-16.0) g/dL Hct 41.9 (36.0-48.0) % MCV 87.7 (81.0-99.0) fL MCH 29.9 (26.7-34.0) pg MCHC 34.1 (29.9-35.2) g/dL RDW 12.4 (11.0-15.0) % Plt Count 227 (150-450) 10^3/uL MPV 10.4 (9.5-13.5) fL Neut % (Auto) 61.8 (43.0-75.0) % Lymph % (Auto) 26.3 (20.5-60.0) % [place] % (Auto) 7.1 (1.7-12.0) % Eos % (Auto) 3.8 (0.9-7.0) % Baso % (Auto) 0.8 (0.2-2.0) % Neut # (Auto) 5.5 (1.4-6.5) 10^3/uL Lymph # (Auto) 2.3 (1.2-3.8) 10^3/uL [place] # (Auto) 0.6 (0.3-0.8) 10^3/uL Eos # (Auto) 0.3 (0.0-0.7) 10^3/uL Baso # (Auto) 0.1 (0.0-0.1) 10^3/uL Abs Immat Gran (auto) 0.02 (0.00-0.03) 10^3/uL Imm/Tot Granulo (auto) 0.2 (0.0-0.5) % D-Dimer 0.26 (<=0.59) mg/L FEU Sodium 141 (136-145) mmol/L Potassium 4.2 (3.5-5.1) mmol/L Chloride 105 (98-107) mmol/L Carbon Dioxide 27.4 (21.0-32.0) mmol/L Anion Gap 12.8 BUN 17.0 (7.0-18.0) mg/dL Creatinine 0.85 (0.55-1.02) mg/dL Est GFR ( Amer) >60 (>=60) Est GFR (Non-Af Amer) >60 (>=60) BUN/Creatinine Ratio 20.0 Glucose 120 H (74-106) mg/dL Calcium 8.7 (8.5-10.1) mg/dL Troponin I High Sens <4.0 L (4.0-51.3) pg/mL Imaging Data Chest x-ray: Radiologist's impression: ITS Impressions Chest X-Ray 11/22/23 07:18 IMPRESSION: 1. Low lung volume examination with trace amount of left basilar atelectasis versus infiltrates. Electronically authenticated by: BRIDGET ZAZUETA Date: 11/22/2023 07:38 Chest CTA 11/22/23 08:09 IMPRESSION: 1. No evidence of acute pulmonary embolic disease. 2. Areas of atelectasis in both lungs, greatest as bandlike atelectasis in a portion of the left lower lobe. 3. No pleural effusion. Electronically authenticated by: REJI PRATER Date: 11/22/2023 09:20 ECG Data Attestation: I personally reviewed and interpreted this ECG as follows: (EKG on my interpretation shows normal sinus rhythm without acute change and a rate of 87.) Discharge Plan Discharge Stand Alone Forms: Portal Instructions Chief Complaint: Abdominal Pain Clinical Impression: Chest wall pain Patient Disposition: Home, Self-Care Time of Disposition Decision: 09:44 Condition: Good Mode of Transportation: Private Vehicle Prescriptions / Home Meds: New acetaminophen-codeine 300-30 mg tablet 1 tab PO Q6H PRN (Reason: pain) 5 Days Qty: 20 0RF ibuprofen 800 mg tablet 800 mg PO Q8H PRN (Reason: pain) Qty: 20 0RF Instructions: Chest Wall Pain (ED) Referrals: CORWIN NYE [Primary Care Provider] - 1 week
== END 2023-11-22 10:12 | disposition home or self-care (01) ==
PROVIDERS: Emergency Provider Emergency Medicine; PCP Family Medicine
DX: R07.89 Other chest pain (principal); K58.9 Irritable bowel syndrome, unspecified
CPT/HCPCS: 36415; 71045; 71275; 80048; 84484; 85025; 85378; 93005; 96374; 99285; Q9967

== ENCOUNTER 2025-07-28 07:35 | Outpatient (OUT) | payer OTHER, SELFPAY ==
--- OUTSIDE RECORDS SUMMARY | 2025-07-26 10:00 | XMS_ITS | Encounter Summary ---
Author Organization [facility] Address [address] [place] [address] Care Team Providers Care Cork Molder Name Role Phone Rodolfo Alvarado DO Primary Care Provider Reason for Referral * Imaging (Routine) - Pending ReviewSpecialtyDiagnoses / ProceduresReferred By ContactReferred To ContactCardiology Diagnoses Other chest pain CARLTON (dyspnea on exertion) Palpitations Procedures Transthoracic echo (TTE) complete Fernanda Osorio MD [address] [place] [address] Phone: tel: fax: Referral IDStatusJujuasonStart DateExpiration DateVisits RequestedVisits [id number] Review Perform Procedure * Genetic Testing (Routine) - Pending ReviewSpecialtyDiagnoses / Procedures Referred By ContactReferred To ContactLab Diagnoses Palpitations Procedures T4, free Fernanda Osorio MD [address] [place] [address] Phone: tel: fax: Referral IDStatusReasonStart DateExpiration DateVisits RequestedVisits [id number] * Cardiac Stress Testing (Routine) - Pending ReviewSpecialtyDiagnoses / ProceduresReferred By ContactReferred To ContactCardiology Diagnoses Palpitations Procedures Cardiac event monitor Fernanda Osorio MD [address] [place] [address] Phone: tel: fax: Referral IDStatusReasonStart DateExpiration DateVisits RequestedVisits [id number] [id number] Encounter Details DateTypeDepartmentCare Team (Latest Contact Info)Xzzurxhlftm14/12/2025 10:00 AM ESTOffice Visit [facility] [place] [address] [place] [address] Fernanda Osorio MD [address] [facility] [address] [place] [id number] Other chest pain (Primary Dx); CARLTON (dyspnea on exertion); Palpitations Social History Tobacco UseTypesPacks/DayYears UsedDateSmoking Tobacco: NeverSmokeless Tobacco: Never Tobacco Cessation:Counseling Given: Not Answered CommentsUnknownSex and Gender InformationValueDate RecordedSex Assigned at JtdgsBnvlnw34/07/2025 11:45 AM ESTLegal WvxGtdmnz11/06/2025 4:04 PM ESTGender FmomhbwqXbpnka27/07/2025 11:45 AM ESTSexual OrientationHeterosexual or Straight 07/21/2025 11:45 AM ESTdocumented as of this encounter Last Filed Vital Signs Vital SignReadingTime TakenCommentsBlood Sgkaptau482/8207/26/2025 10:15 AM EST Bcmaa444407/26/2025 10:15 AM ESTTemperature--Respiratory Rate--Oxygen Saturation 98%07/26/2025 10:15 AM ESTInhaled Oxygen Concentration--Fqbpbi27.3 kg (188 lb) 07/26/2025 10:15 AM MRIOscqmo975.1 cm (5' 5 )07/26/2025 10:15 AM ESTBody Mass Index31.28109/25/2024 10:15 AM ESTdocumented in this encounter Functional Status * BPAnswerDate of QwhwzaqvzkIgdbxt648/8207/26/2025 10:15 AM Carmenza Grimes MA * PulseAnswerDate of AvqnmaguhmOzbwkb8002/12/2025 10:15 AM Carmenza Grimes MA * Audit Alcohol ScreeningQuestionAnswerDate of AssessmentAuthorHow often do you have a drink containing alcohol? 10:22 AM Carmenza Grimes MA * Patient PositionAnswerDate of MtopbgbhnkTzglurTjxibim88/12/2025 10:15 AM Carmenza Kerr MA * BPAnswerDate of VemiakitzyCnwjad819/8207/26/2025 10:15 AM Carmenza Grimes MA * PulseAnswerDate of TsaesipskuJpqbzj4588/12/2025 10:15 AM Carmenza Grimes MA * GgS3RkeopnCkdg of GpuytlglfpDgnnxx5622/12/2025 10:15 AM Carmenza Grimes MA * BP LocationAnswerDate of AssessmentAuthorRight arm07/26/2025 10:15 AM Carmenza Kerr MA * Audit Alcohol ScreeningQuestionAnswerDate of AssessmentAuthorHow often do you have a drink containing alcohol? 10:22 AM Carmenza Grimes MA * Patient PositionAnswerDate of EggmqjksanKxpsboDfzmvkw80/12/2025 10:15 AM Carmenza Kerr MA documented as of this encounter Progress Notes * Fernanda Osorio MD - 07/26/2025 10:00 AM EST Images from the original note were not included. [facility] Cardiology Clinic Note Chief Complaint: Patient here today as a new patient to establish care with cardiology for chest pain. Patient states she is not feeling well today, patient states her heart feel like its racing/palpitation, and feels something weird in the left side of her neck, patient states when she eats and lays on her right side she feels her heart racing, patient states the she has a dull ache sometime in the center of her chest, Patient complains of chest pain for the last 6 to 8 months. Patient states she has had covid 2 times and her breathing isn't right since then. Patient states she has increasedin fatigue. Patient complains of head pounding. Patient states she has not spoken to here PCP aboutany of these symptoms. Review of Systems Constitutional: Positive for malaise/fatigue. Cardiovascular: Positive for chest pain, dyspnea on exertion, irregular heartbeat and palpitations. Respiratory: Positive for shortness of breath. HPI: Adeola Cardona is a 55 y.o. female with a history of IBS who is here regarding concerns about palpitations, chest pressure and shortness of breath For the past 6 to 7 months, she has noticed progressively worsening palpitations. These can occur both with rest and exertion. They are accompanied by a sensation of heaviness in the chest. She has some mild lightheadedness and dizziness but no syncope. In addition, she has noticed exertional shortness of breath particularly worse after 2 bouts of COVID in 2022 and earlier. She denies orthopnea or paroxysmal external dyspnea. She has had no significant lower extremity edema. Family history: No premature coronary artery disease in any first-degree relatives Social history: She drinks coffee infrequently, she denies alcohol, she does not smoke. She is a awdq-yg-fjfj mom. Past Medical History She has no past medical history on file. Surgical History She has no past surgical history on file. Social History She reports that she has never smoked. She has never used smokeless tobacco. No history on file foralcohol use and drug use. Family History Family History[1] Allergies Sulfa (sulfonamide antibiotics) and Sulfur Medications Current Medications[2] Last Recorded Vitals BP 122/82 (BP Location: Right arm, Patient Position: Sitting) Pulse 79 Ht 1.651 m (5' 5 ) Wt 85.3 kg (188 lb) SpO2 98% BMI 31.28 kg/m?? Physical Examination: GENERAL: alert and oriented x3, well developed, in no acute distress. HEAD: atraumatic, normocephalic. EYES: ABEL, EOMI. NECK: trachea midline, no JVD present, no carotid bruits present. CARDIAC: S1, S2 present. RRR. No murmur, rubs, or gallops. RESPIRATORY: CTAB, no increased effort of breathing, no rales, rhonchi, or wheezing. ABDOMEN: soft, nontender, nondistended. EXTREMITIES: no lower extremity edema, peripheral pulses are 2+ bilaterally. No rash/skin discoloration present. NEURO: strength/sensation equal and symmetric in bilateral upper and lower extremities. PSYCH: appropriate mood, affect, and judgement. Investigations: 12-lead EKG 07/26/2025: Normal sinus rhythm Normal ECG Assessment: Palpitations Chest pressure Exertional shortness of breath Plan: Routine labs including CBC, CMP, TSH and free T4 A 30-day event monitor A complete echocardiogram Given her symptomatology, a treadmill Cardiolite stress test will be ordered Return to clinic following testing Fernanda Osorio MD, MPH, [facility], [facility], [facility] Interventional Cardiology Pager Email: [email or web address] [1] No family history on file. [2] No current outpatient medications on file. documented in this encounter Plan of Treatment DateTypeDepartmentCare Team (Latest Contact Info)Xatihpeyvyl05/13/2026 10:00 AM ESTOffice Visit [facility] [place] [address] [place] [address] Fernanda Osorio MD [address] [facility] [address] [facility] [place] [phone] NameTypePriorityAssociated DiagnosesOrder ScheduleCardiac event monitorCardiac ServicesRoutine Palpitations Expected: 07/26/2025 (Approximate), Expires: 07/26/2027CBC and differentialLab Routine Other chest pain CARLTON (dyspnea on exertion) Palpitations Expected: 07/26/2025 (Approximate), Expires: 07/26/2026omprehensive metabolic panelLabRoutine Other chest pain CARLTON (dyspnea on exertion) Palpitations Expected: 07/26/2025 (Approximate), Expires: 07/26/2026TSHLabRoutine Palpitations Expected: 07/26/2025 (Approximate), Expires: 07/26/2026T4, freeLabRoutine Palpitations Expected: 07/26/2025 (Approximate), Expires: 07/26/2026Transthoracic echo (TTE) completeEchocardiographyRoutine Other chest pain CARLTON (dyspnea on exertion) Palpitations Expected: 07/26/2025 (Approximate), Expires: 07/26/2027Treadmill Stress Myocardial Perfusion ImagingCardiac ServicesRoutine Other chest pain CALRTON (dyspnea on exertion) Palpitations Expected: 07/26/2025 (Approximate), Expires: 07/26/2027documented as of this encounter Procedures Procedure NamePriorityDate/TimeAssociated DiagnosisCommentsECG 12 LEAD UNIT YQUXSKXZGUslpihk34/12/2025 10:03 AM EST Other chest pain documented in this encounter Results * ECG 12 lead unit performed (07/26/2025 10:03 AM EST)Specimen (Source) Anatomical Location / LateralityCollection Method / VolumeCollection Time Received Time Narrative Authorizing ProviderResult TypeResult StatusEhab [facility] HospitalEC ORDERABLESFinal Result documented in this encounter Visit Diagnoses Diagnosis Other chest pain- Primary CARLTON (dyspnea on exertion) Other dyspnea and respiratory abnormality Palpitations documented in this encounter Care Teams Team MemberRelationshipSpecialtyStart DateEnd Date Rodolfo Alvarado DO [address] [place] [address] PCP - GeneralInternal Ptuoxglc67/6/25documented as of this encounter
--- OUTSIDE RECORDS SUMMARY | 2025-07-28 07:40 | XMS_ITS | Clinical Summary ---
Author Organization [facility] Address [address] [place] [address] Care Team Providers Care Dedicated Intermodal Truck Driver Name Role Phone Unavailable Primary Care Provider Unavailabl e Allergies Active AllergyReactionsCriticalityNoted DateCommentsSulfa (Sulfonamide Antibiotics)08/26/2005 Medications MedicationSigDispense QuantityRefillsLast FilledStart DateEnd DateStatus ZYRTEC 10 MG TAB Take one(1) tablet daily.Active FLONASE 50 MCG/ACTUATION NASAL SPRAY AEROSOL Use daily as directed.Active ORTHO TRI-CYCLEN LO 0.18/0.215/0.25 MG-25 MCG TAB Take one(1) tablet daily.Active MULTIVITAMIN TAB Take one(1) tablet daily.Active FOLIC ACID 400 MCG TAB 2 tabs once xasxl19810/27/2004Active BENTYL 10 MG CAP one po 30 min ac ahd HS or prn pain 60 Active LEVSIN 0.125 MG TAB as jkobeknwo151/15/2006ctive ULTRACET 37.5 MG-325 MG TAB as zhfqlozxs203/15/2006ctive TYLOX 5 MG-500 MG CAP as rkzsecvzi774/15/2006ctive DARVOCET-N 100 100 MG-650 MG TAB as ngloogfdi886/15/2006ctive Social History Tobacco UseTypesPacks/DayYears UsedDateSmoking Tobacco: NeverAlcohol UseStandard Drinks/WeekCommentsNot Asked0 (1 standard drink = 0.6 oz pure alcohol) CommentsNoSex and Gender InformationValueDate RecordedSex Assigned at BirthNot on fileLegal UfdSzxrgo92/02/2012 7:32 AM ESTGender IdentityNot on fileSexual OrientationNot on file Last Filed Vital Signs Vital SignReadingTime TakenCommentsBlood Wzhmzrdi784/7709 10:39 AM EDT Kodzl4669/ 10:39 AM EDTTemperature--Respiratory Rate--Oxygen Saturation-- Inhaled Oxygen Concentration--Pqkgul37.7 kg (122 lb 12.7 oz)05/29/2006 10:39 AM INMUtutwy014.6 cm (5' 6 )08/26/2005 8:30 AM ESTBody Mass Index19.8208/26/2005 8:30 AM EST Plan of Treatment Health MaintenanceDue DateLast DoneCommentsAnxiety Ohmubyxil21/28/1988Depression Eorvtslic99/28/1988HIV Xrqldfqgi35/28/1988Hepatitis C Ixoiuswab78/28/1988 DTaP,Tdap,Td Vaccine (1 - Tdap)1989Hepatitis B Vaccine (1 of 3 - 19+ 3- dose series)1989Cervical Cancer Omcsxdsks29/28/1991Mammogram Screening 2010CT Mzjpartqnkpj00/28/2015Cologuard (FIT-DNA)2015Colonoscopy Colorectal Cancer Tzxkqqfzs22/28/2015Diabetes Screening 2015Fecal Occult Blood2015Lipid Kjqrqlajc50/28/2015Sigmoidoscopy 2015Pneumococcal Vaccine: 50+ (1 of 1 - PCV)2020Shingrix Vaccine (1 of 2)2020Covid-19 Vaccine (1 - 2024- season)2025Influenza Vaccine (#1)2025 Procedures Procedure NamePriorityDate/TimeAssociated DiagnosisCommentsCOLONOSCOPY, GI 09/27/2005 from Last 3 Months or Most Recently Relevant to Health Maintenance Results * COLONOSCOPY, GI (09/27/2005)ComponentValueRef RangeTest MethodAnalysis Time Performed AtPathologist SignatureTranscriptionDATE: 09/27/2005 ENDOSCOPIST: ??Tad Carmichael MD REFERRING PHYSICIAN: ? PATIENT NAME: [facility] NO: [id number] IMPRESSION: 1. 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 PERFORMED BY: Performed by Tad Carmichael MD. INTRODUCTION Female patient presents for an elective outpatient colonoscopy. ??The indication for the procedure was evaluation for possible Crohn's disease. CLINICAL HISTORY & PHYSICAL EXAMINATION: The patient's clinical history and physical examination were performed and are documented in the patient's record. CONSENT: The benefits, risks, and alternatives to the procedure were discussed and informed consent was obtained from the patient. PREPARATION: Pulse, pulse oximetry and blood pressure monitored. MEDICATIONS: - Demerol 125 mg IV throughout the procedure - Versed 7 mg IV throughout the procedure PROCEDURE: Rectal exam: Normal. The endoscope was passed with ease under direct visualization through the RLQ to the terminal ileum confirmed by appendiceal orifice and ileocecal valve. Retroflexion was performed. ??The quality of the preparation was fair. FINDINGS: ??Focal areas of melanosis coli was seen in the left colon. The reminader of the examination was normal. Biopsies were obtained from the terminal ileum, throhgout the colon and rectum. [facility] LABSpecimen (Source)Anatomical Location / LateralityCollection Method / VolumeCollection TimeReceived Time09/27/2005 Narrative [facility] - 09/29/2005 7:29 AM EST Ordered by an unspecified provider. Authorizing ProviderResult TypeResult StatusCcf ProviderSCHEDULED PROCEDURES Final ResultPerforming OrganizationAddressCity/State/ZIP CodePhone Number [facility] [address] [place] [address] from Last 3 Months or Most Recently Relevant to Health Maintenance
--- OUTSIDE RECORDS SUMMARY | 2025-07-28 07:40 | XMS_ITS | Clinical Summary ---
Author Organization [facility] Healthcare Address [address] [facility] [place] [address] Care Team Providers Care Defect Repairer Glassware Name Role Phone Moriah Nye MD Primary Care Provider [phone] Allergies Active AllergyReactionsCriticalityNoted DateCommentsMilk-Related Compounds 10/01/2023 Other Reaction(s): Unknown Sulfa Yyynzfsunvy93/13/2005 Other Reaction(s): Unknown Other Reaction(s): Rash Medications MedicationSigDispense QuantityRefillsLast FilledStart DateEnd DateStatus Vitamin C 250 MG tablet Vitamin CActive VITAMIN B COMPLEX-C PO Vitamin B ComplexActive omega-3 (fish oil) 1000 MG capsule 1 capsule 1 (one) time each day at the same timeActive metroNIDAZOLE (Metrogel) 0.75 % gel APPLY TOPICALLY TO FACE TWICE A DAY09/23/2023ctive Multiple Vitamins-Minerals (Multi For Her) capsule as directed OrallyActive dicyclomine (Bentyl) 10 MG capsule Indications:Irritable bowel syndrome with diarrheaTake 1 capsule (10 mg) by mouth in the morning and 1 capsule (10 mg) before bedtime. 200 capsule ctive hyoscyamine (Levsin/SL) 0.125 MG SL tablet Indications:Irritable bowel syndrome with diarrheaPlace 1 tablet (125 mcg) under the tongue every 4 (four) hours if needed for bladder spasms 120 tablet ctive Active Problems ProblemNoted DateDiagnosed DateAcute respiratory failure with incvitv1810/20/2023 COVID-19010/20/2023Viral trswtholhbphfoz23/06/2024 Assessment & Plan (10/20/2023 10:44 AM EST): Increase fluids Gatorade/Powerade/Pedialyte Avoid Milk and Juices Tylenol for any Abdominal Pain Watch for Dehydration Clear liquids to a BRAT diet Banana Rice Applesauce Pipestone F/U if NB If Worsens go to ER for IV hydration Could be colitis May need CT scan and repeat Colonoscopy Eruptive imisyagd03/25/2024Menopausal cqydscv0910/08/2023Menstrual disorder 10/08/2023lantar wart10/08/2023Severe acute respiratory syndrome coronavirus 2 (SARS-CoV-2) osqvlhfw32/25/2024Vitamin D kmrvdnqwvo43/25/2024cute gastritis 04/07/2008djustment reaction with mixed disturbance of emotions and conduct 04/07/2008llergic ypzpoptk99/25/2008ullous iuswqsipsf20/25/2008Depressive /25/2008Irritable bowel /25/2008 Immunizations ImmunizationAdministration DatesNext DueInfluenza, seasonal, intradermal, preservative free06/01/2018 Family History Medical HistoryRelationNameCommentsIrritable bowel syndromeMotherRelationName StatusCommentsMotherAlive Social History Tobacco UseTypesPacks/DayYears UsedDateSmoking Tobacco: NeverSmokeless Tobacco: Never Tobacco Cessation:Counseling Given: Not Answered Alcohol UseStandard Drinks/WeekCommentsYes0 (1 standard drink = 0.6 oz pure alcohol)Caffeine intake: couple a monthAUDIT-CAnswerDate RecordedQ1: How often do you have a drink containing alcohol?Never07/06/2023Q2: How many drinks containing alcohol do you have on a typical day when you are drinking?1 or 2 07/06/2023Q3: How often do you have six or more drinks on one occasion?Never 07/06/2023CommentsUnknownSex and Gender InformationValueDate RecordedSex Assigned at BirthNot on fileLegal KyhNsdwub52/15/2023 6:41 PM EDTGender Identity Not on fileSexual OrientationNot on file Last Filed Vital Signs Vital SignReadingTime TakenCommentsBlood Kefqogct668/7202/08/2025 10:54 AM EST Phyex772410/20/2023 10:24 AM ESTTemperature--Respiratory Rate--Oxygen Saturation 97%10/20/2023 10:24 AM ESTInhaled Oxygen Concentration--Vwiczd15.7 kg (178 lb) 10/26/2024 10:54 AM BLOHbfuwt371.6 cm (5' 6 )10/01/2023 10:41 AM ESTBody Mass Index28.7310/01/2023 10:41 AM EST Plan of Treatment DateTypeDepartmentCare Team (Latest Contact Info)Sfnkmlarrir84/04/2026 10:15 AM ESTOffice Visit [facility] [address] [place] [address] Lindsey Maria DO [address] [place] [address] Health MaintenanceDue DateLast DoneCommentsCT Qtitvtnlsnlb1970Colonoscopy 1970Colorectal Cancer Qdetspyty1970FIT-DNA1970FIT1970 FOBT03/11/19708676Ndffeznhqcunl1970Pap Smear03/11/19918778Vxrdlstuu13/11/2024 08/24/2023, 08/24/2023, 06/17/2022, Additional history existsCOVID-19 Vaccine ( season)2025Influenza Vaccine (#1)/Cervical Cancer Swhylxghv90/18/2029HPV/Gzkexq79/, 06/17/2022, 10/09/2020, Additional history existsPneumococcal Vaccine: Pediatrics (0 to 5 Years) and At-Risk Patients (6 to 64 Years)Aged OutNo longer eligible based on patient's age to complete this topic Procedures Procedure NamePriorityDate/TimeAssociated DiagnosisCommentsTHINPREP IMAGING PAP W/REFL HPV MRNA E6/C9Wadcxer36/18/2024 11:20 AM EST Screening for malignant neoplasm of cervix MM TOMOSYNTHESIS SCREENING BI08/24/2023 11:17 AM EST from Last 3 Months or Most Recently Relevant to Health Maintenance Results * THINPREP IMAGING PAP W/REFL HPV MRNA E6/E7 (10/01/2023 11:20 AM EST)Component ValueRef RangeTest MethodAnalysis TimePerformed AtPathologist Signature CLINICAL INFORMATIONQUESTComment:None givenLMPQUESTComment:NONE GIVENPREV. PAP QUESTComment:NONE GIVENPREV. BXQUESTComment:NONE GIVENSOURCEQUESTComment: CervixSTATEMENT OF ADEQUACYQUESTComment:SATISFACTORY FOR EVALUATION INTERPRETATION/RESULTQUESTComment: Cytology Results: Negative for intraepithelial lesion or malignancy. Atrophic pattern; predominantly parabasal cells COMMENTQUESTComment: This Pap test has been evaluated with computer assisted technology. Parabasal cells in smears that lack maturation due to atrophy or other hormonal reasons cannot be differentiated from transformation zone cells. Accordingly, presence or absence of endocervical or transformation zone components cannot be reported in this patient. CYTOTECHNOLOGISTQUESTComment: SHANNON CT(ASCP) CT screening location: [place] [place] [address]. (ALWAYS MESSAGE)QUESTComment: EXPLANATORY NOTE: The Pap is a screening test for cervical cancer. It is not a diagnostic test and is subject to false negative and false positive results. It is most reliable when a satisfactory sample, regularly obtained, is submitted with relevant clinical findings and history, and when the Pap result is evaluated along with historic and current clinical information. Specimen (Source)Anatomical Location / LateralityCollection Method / Volume Collection TimeReceived TimeVaginal Fluid10/01/2023 11:20 AM EST10/02/2023 3:12 AM EST Narrative Resulting Agency Comment Performing Organization Information ?Site ID: [id number] ?Name: [employer] [facility] ?Address: [address] [place] [address], [address] [place] [phone] ?Director: Landon Marshall MD Authorizing ProviderResult TypeResult StatusKatfreddy ERNANDEZ CYTOLOGY ORDERABLESFinal ResultPerforming OrganizationAddressCity/State/ZIP CodePhone Number QUEST * MM TOMOSYNTHESIS SCREENING BI (08/24/2023 11:17 AM EST)Anatomical Region LateralityModalityOtherSpecimen (Source)Anatomical Location / Laterality Collection Method / VolumeCollection TimeReceived Time08/24/2023 11:17 AM EST Narrative 08/24/2023 11:18 AM EST [facility] ?[address] ? [place] [address] ? Mammography Report ? Signed ? Patient: Cardona,Vanita M ?MR#: [id number] ?? : 1970 ?Acct:[id number] ?? Age/Sex: 53 / F ?ADM Date: 08/24/23 ?? Loc: MAMMO ? Attending Tarun MARIA ? Ordering Physician: LINDSEY MARIA ? Results: ? Date of Service: 08/24/23 ?Follow Up: ? Procedure(s): MM tomosynthesis screening BI ?? Accession Number(s): [id number] ? cc: MORIAH NYE ; LINDSEY MARIA ? Patient Name: ? VANITAVANDANA CARDONA ? MR#: [id number] ? : 1970 ? Exam Date: 08/24/2023 ?? Ordering Doctor: DR. LINDSEY MARIA D.OWhitney ? RADIOLOGY REPORT ? PROCEDURE: ? MM TOMOSYNTHESIS SCREENING BI ? COMPARISON: ? MG MAMM SCREEN JOSE W CAD, 11/07/2016. ??MG MAMM SCREEN JOSE W ?? CAD, 07/03/2020. ? INDICATIONS: ? Screening ? Calculator Name ? NCI Breast Cancer Risk Assessment Tool ?? 5 Year Breast Cancer Risk ? 1.50% ?? Lifetime Breast Cancer Risk ? 11.60% ?? Personal Breast Cancer ?No ?? Personal Ovarian Cancer ? No ?? Treatments ? None ?? Family Cancers ? None ? LOCATION: ? [facility] ? BREAST COMPOSITION: ? Extremely dense, which lowers the sensitivity of ?? mammography. ? FINDINGS: ? DIAGNOSTIC CATEGORY 1--NEGATIVE. NO CHANGE FROM COMPARISON ASSESSMENT. ? Scattered benign-appearing nodules are present. ??Scattered benign-appearing ?? calcifications are present. ??Scattered benign-appearing lymph nodes are ?? present. ? RIGHT BREAST: ??No significant suspicious finding. ? LEFT BREAST: ??No significant suspicious finding. ? RECOMMENDATIONS: ? ROUTINE MAMMOGRAM AND CLINICAL EVALUATION IN 12 MONTHS. ? PLEASE NOTE: ??A NORMAL MAMMOGRAM DOES NOT EXCLUDE THE POSSIBILITY OF BREAST ?? CANCER. ??A CLINICALLY SUSPICIOUS PALPABLE LUMP SHOULD BE BIOPSIED. ? Dictated by: Mark Vidal MD on 08/24/2023 at 11:15 ? Approved by: Mark Vidal MD on 08/24/2023 at 11:17 ? Dictated By: ?Mark Vidal M.D. ? Signed By: ?08/24/23 1118 ? DD/ 1117 ? TD/TT: ? Oracle Bpm Consultant: Procedure Note Radiology, Radiologist, MD - 08/24/2023 [place] [address] Mammography Report Signed Patient: Vanita Cardona MMR#: [id number] : 1970Acct:[id number] Age/Sex: 53 / FADM Date: 08/24/23 Loc: MAMMO Attending Dr: LINDSEY MARIA Ordering Physician: LINDSEY MARIAResults: Date of Service: 08/24/23Follow Up: Procedure(s): MM tomosynthesis screening BI Accession Number(s): [id number] cc: MORIAH NYE ; LINDSEY MARIA Patient Name: VANITA CARDONA MR#: [id number] : 1970 Exam Date: 08/24/2023 Ordering Doctor: DR. LINDSEY MARIA D.O. RADIOLOGY REPORT PROCEDURE: MM TOMOSYNTHESIS SCREENING BI COMPARISON: MG MAMM SCREEN JOSE W CAD, 11/07/2016. MG MAMM SCREEN JOSE W CAD, 07/03/2020. INDICATIONS: Screening Calculator Name NCI Breast Cancer Risk Assessment Tool 5 Year Breast Cancer Risk 1.50% Lifetime Breast Cancer Risk 11.60% Personal Breast Cancer No Personal Ovarian Cancer No Treatments None Family Cancers None LOCATION: [facility] BREAST COMPOSITION: Extremely dense, which lowers the sensitivity of mammography. FINDINGS: DIAGNOSTIC CATEGORY 1--NEGATIVE. NO CHANGE FROM COMPARISON ASSESSMENT. Scattered benign-appearing nodules are present. Scatteredbenign-appearing calcifications are present. Scattered benign-appearing lymph nodes are present. RIGHT BREAST: No significant suspicious finding. LEFT BREAST: No significant suspicious finding. RECOMMENDATIONS: ROUTINE MAMMOGRAM AND CLINICAL EVALUATION IN 12 MONTHS. PLEASE NOTE: A NORMAL MAMMOGRAM DOES NOT EXCLUDE THE POSSIBILITY OFBREAST CANCER. A CLINICALLY SUSPICIOUS PALPABLE LUMP SHOULD BE BIOPSIED. Dictated by: Mark Vidal MD on 08/24/2023 at 11:15 Approved by: Mark Vidal MD on 08/24/2023 at 11:17 Dictated By: Mark Vidal M.D. Signed By:08/24/23 1118 DD/ 1117 TD/TT: Oracle Bpm Consultant: Authorizing ProviderResult TypeResult StatusGeneric External Data Provider CLINISYNC IMAGINGFinal Result from Last 3 Months or Most Recently Relevant to [place] [address] [place] [id number] Care Teams Team MemberRelationshipSpecialtyStart DateEnd Date Moriah Nye MD [address] [facility] [address] [place] [address] [facility] Medicine01/20/23
--- OUTSIDE RECORDS SUMMARY | 2025-07-28 07:40 | XMS_ITS | Encounter Summary ---
Author Organization [facility] Address [address] [place] [address] Care Team Providers Care Electronic News Gathering Camera Person Name Role Phone Moriah Nye MD Unavailable Moriah Nye MD Primary Care Provider [phone] Moriah Nye MD Unavailable Encounter Details DateTypeDepartmentCare Team (Latest Contact Info)Eptqjwvprml29/11/2023Clinisync Result Encounter [facility] External Department Unsolicited Provider, Generic External Data Social History Tobacco UseTypesPacks/DayYears UsedDateSmoking Tobacco: NeverAlcohol UseStandard Drinks/WeekCommentsYes0 (1 standard drink = 0.6 oz pure alcohol)Caffeine intake: couple a monthAUDIT-CAnswerDate RecordedQ1: How often do you have a drink containing alcohol?Never07/06/2023Q2: How many drinks containing alcohol do you have on a typical day when you are drinking?1 or Q3: How often do you have six or more drinks on one occasion?Never3CommentsUnknown Sex and Gender InformationValueDate RecordedSex Assigned at BirthNot on file Legal TdrDbdlgv04/15/2023 6:41 PM EDTGender IdentityNot on fileSexual OrientationNot on filedocumented as of this encounter Plan of Treatment DateTypeDepartmentCare Team (Latest Contact Info)Edmetcmmebr48/04/2026 10:15 AM ESTOffice Visit [facility] [address] [place] [address] Lindsey Maria E, DO [address] [place] [address] documented as of this encounter Procedures Procedure NamePriorityDate/TimeAssociated DiagnosisCommentsMM TOMOSYNTHESIS SCREENING BI08/24/2023 11:17 AM EST documented in this encounter Results * MM TOMOSYNTHESIS SCREENING BI (08/24/2023 11:17 AM EST)Anatomical Region LateralityModalityOtherSpecimen (Source)Anatomical Location / Laterality Collection Method / VolumeCollection TimeReceived Time08/24/2023 11:17 AM EST Narrative 08/24/2023 11:18 AM EST [facility] ?[address] ? [place] [address] ? Mammography Report ? Signed ? Patient: BrendanVanita Danny ?MR#: [id number] ?? : 1970 ?Acct:[id number] ?? Age/Sex: 53 / F ?ADM Date: 08/24/23 ?? Loc: MAMMO ? Attending Dr: LINDSEY MARIA ? Ordering Physician: LINDSEY MARIA ? Results: ? Date of Service: 08/24/23 ?Follow Up: ? Procedure(s): MM tomosynthesis screening BI ?? Accession Number(s): [id number] ? cc: POPEYE,RUGEN ; LINDSEY MARIA ? Patient Name: ? VANITA CARDONA ? MR#: [id number] ? : 1970 ? Exam Date: 08/24/2023 ?? Ordering Doctor: DR. LINDSEY MARIA D.O. ? RADIOLOGY REPORT ? PROCEDURE: ? MM [...] Cancers ? None ? LOCATION: ? [facility] ? BREAST COMPOSITION: ? Extremely dense, [...] 1118 ? DD/ 1117 ? TD/TT: ? Patent Law Specialist: Procedure Note Radiology, Radiologist, MD - 08/24/[address] [address] Mammography Report Signed Patient: Vanita Cardona MMR#: [id number] : 1970Acct:[id number] Age/Sex: 53 / FADM Date: 08/24/23 Loc: MAMMO Attending Dr: LINDSEY MARIA Ordering Physician: LINDSEY MARIAResults: Date of Service: 08/24/23Follow Up: Procedure(s): MM tomosynthesis screening BI Accession Number(s): [id number] cc: MORIAH NYE ; LINDSEY MARIA Patient Name: VANITA CARDONA MR#: [id number] : 1970 Exam Date: 08/24/2023 Ordering Doctor: [...] Treatments None Family Cancers None LOCATION: [facility] BREAST COMPOSITION: Extremely dense, which lowers [...] M.D. Signed By:08/24/23 1118 DD/ 1117 TD/TT: Patent Law Specialist: Authorizing ProviderResult TypeResult StatusGeneric External Data Provider CLINISYNC IMAGINGFinal Result documented in this encounter Visit Diagnoses Not on filedocumented in this encounter Care Teams Team MemberRelationshipSpecialtyStart DateEnd Date Moriah Nye MD [address] [facility] [address] [place] [address] PCP - Medical [place] [employer] Moriah Nye MD [address] [facility] [address] [place] [address] [facility] - [facility]23 Moriah Nye MD [address] [facility] [address] [place] [address] PCP - Medical [place] Commercialdocumented as of this encounter
--- OUTSIDE RECORDS SUMMARY | 2025-07-28 07:40 | XMS_ITS | Clinical Summary ---
Author Organization [facility] Address [address] [place] [address] Care Team Providers Care Leasing Sales Consultant Name Role Phone Rodolfo Alvarado DO Primary Care Provider [phone] Allergies Active AllergyReactionsCriticalityNoted DateCommentsSulfa (Sulfonamide Antibiotics)MrssQzz8108/26/2005 Other Reaction(s): Unknown Other Reaction(s): Rash FhwlnjBpjqZwv54/12/2025 Medications MedicationSigDispense QuantityRefillsLast FilledStart DateEnd DateStatus hyoscyamine 0.[address] 0.125 mg under the tongue every 4 (four) hours if needed.5Active Active Problems ProblemNoted DateDiagnosed PvwnQlipplas18/10/2025Menopause iockfqsd93/10/2025 Rnjmgsckjncw48/10/2025Screening for colon wjcjyi345Acute respiratory failure with ggblkvr9410/20/2023 Overview (07/24/2025): Problem List clean-up per request of Phys. EHR Cmte COVID-19010/20/2023 Overview (07/24/2025): Problem List clean-up per request of Phys. EHR Cmte Viral qoxialapbfcsddp61/06/2024Eruptive entejyoe52/25/2024Menopausal symptom 10/08/2023Menstrual ycduljnv01/25/2024lantar wart10/08/2023Severe acute respiratory syndrome coronavirus 2 (SARS-CoV-2) beohqzfg09/25/2024Vitamin D fmcapbvwmz62/25/2024cute ispftryyu91/25/2008djustment reaction with mixed disturbance of emotions and nymilaf94/25/2008Allergic rvraucps64/25/2008ullous atntnflzer49/25/2008Depressive gehnfuzu47/25/2008Irritable bowel syndrome 04/07/2008 Encounters DateTypeDepartmentCare RaahXhrzizzmvas95/12/2025 10:00 AM ESTOffice Visit [facility] [address] [place] [address] Fernanda Osorio MD Other chest pain (Primary Dx); CARLTON (dyspnea on exertion); Palpitationsfrom Last 3 Months Family History RelationNameStatusCommentsFatherAliveMotherAlive Social History Tobacco UseTypesPacks/DayYears UsedDateSmoking Tobacco: NeverSmokeless Tobacco: Never Tobacco Cessation:Counseling Given: Not Answered CommentsUnknownSex and Gender InformationValueDate RecordedSex Assigned at EaurmAncunr09/07/2025 11:45 AM ESTLegal HluDhasda37/06/2025 4:04 PM ESTGender WhsbzkpdTqugbr45/07/2025 11:45 AM ESTSexual OrientationHeterosexual or Straight 07/21/2025 11:45 AM EST Last Filed Vital Signs Vital SignReadingTime TakenCommentsBlood Qtgsyvau187/8207/26/2025 10:15 AM EST Dovdh489407/26/2025 10:15 AM ESTTemperature--Respiratory Rate--Oxygen Saturation 98%07/26/2025 10:15 AM ESTInhaled Oxygen Concentration--Ukyirs81.3 kg (188 lb) 07/26/2025 10:15 AM SHVWqpqbk314.1 cm (5' 5 )07/26/2025 10:15 AM ESTBody Mass Index31.28109/25/2024 10:15 AM EST Plan of Treatment DateTypeDepartmentCare Team (Latest Contact Info)Lgsxfmratuq22/13/2026 10:00 AM ESTOffice Visit [facility] [address] [place] [address] Fernanda Osorio MD [address] [facility] [address] [facility] [place] [address] Health MaintenanceDue DateLast DoneCommentsCT Hvuqxtoeckzh1970Colonoscopy 1970Colorectal Cancer Gdhufjuur1970FIT-DNA1970FIT1970 FOBT1970Zrfylcsgadjed1970Depression Eiizrmxpy15/28/1982Hepatitis B Vaccines (1 of 3 - 19+ 3-dose series)1989Pap Smear1991Adult Tetanus 1992Cervical Cancer Qdagcmyyo49/28/2000HPV/Cbplrt7003/11/2000Mammogram 2010Zoster Vaccines (1 of 2)2020COVID-19 Vaccine ( - season)2025Influenza Vaccine (#1)HIB VaccinesAged Out No longer eligible based on patient's age to complete this topicHPV VaccinesAged OutNo longer eligible based on patient's age to complete this topicIPV Vaccines Aged OutNo longer eligible based on patient's age to complete this topic Meningococcal B VaccineAged OutNo longer eligible based on patient's age to complete this topicMeningococcal VaccineAged OutNo longer eligible based on patient's age to complete this topicPneumococcal Vaccine: Pediatrics (0 to 5 Years) and At-Risk Patients (6 to 64 Years)Aged OutNo longer eligible based on patient's age to complete this topicRotavirus VaccinesAged OutNo longer eligible based on patient's age to complete this topic Procedures Procedure NamePriorityDate/TimeAssociated DiagnosisCommentsECG 12 LEAD UNIT QDVGESAWWEwwixim01/12/2025 10:03 AM EST Other chest pain from Last 3 Months Results * ECG 12 lead unit performed (07/26/2025 10:03 AM EST)Specimen (Source) Anatomical Location / LateralityCollection Method / VolumeCollection Time Received Time Narrative Authorizing ProviderResult TypeResult StatusEhab Devon AGUILERA ORDERABLESFinal Result from Last 3 Months Insurance Care Teams Team MemberRelationshipSpecialtyStart DateEnd Date Rodolfo Alvarado DO [address] [facility] [place] [phone] PCP - GeneralInternal Nhfydsil71/6/25
[2025-07-28 08:16] LABS: Hematocrit 40.2 % (36.0-48.0); Hemoglobin 14.2 g/dL (12.0-16.0); Immature Granulocytes Abs Auto 0.02 10^3/uL (0.00-0.03); Immature Granulocytes Pct Auto 0.3 % (0.0-0.5); Lymphocytes Absolute Auto 1.4 10^3/uL (1.2-3.8); Mean Corpuscular HGB Conc 35.3 g/dL (29.9-35.2); Mean Corpuscular Hemoglobin 30.0 pg (26.7-34.0); Mean Corpuscular Volume 84.8 fL (81.0-99.0); Platelet Count 219 10^3/uL (150-450); Red Blood Count 4.74 10^6/uL (4.20-5.40); White Blood Count 7.1 10^3/uL (4.0-11.0)
[2025-07-28 08:38] LABS: Cholesterol 223 mg/dL (<=200); HDL Cholesterol 49 mg/dL (40-60); Triglycerides 109 mg/dL (<=150); VLDL CHOLESTEROL 21.8 mg/dL
[2025-07-28 08:59] LABS: Alanine Aminotransferase 26 U/L (14-59); Albumin Globulin Ratio 1.3; Albumin Level 4.0 g/dL (3.4-5.0); Alkaline Phosphatase 101 U/L (46-116); Anion Gap 16.0; Aspartate Amino Transferase 15 U/L (15-37); Blood Urea Nitrogen 11.0 mg/dL (7.0-18.0); Calcium 9.2 mg/dL (8.5-10.1); Carbon Dioxide 23.9 mmol/L (21.0-32.0); Chloride 105 mmol/L (98-107); Estimated GFR (African America >60 (>=60 mL/min/1.73m^2); Estimated GFR (Non-African Ame >60 (>=60 mL/min/1.73m^2); Globulin 3.2 g/dL; Glucose 111 mg/dL (74-106); Potassium 3.9 mmol/L (3.5-5.1); Sodium 141 mmol/L (136-145); Total Protein 7.2 g/dL (6.4-8.2)
[2025-07-28 09:00] LABS: Thyroid Stimulating Hormone 4.013 uIU/mL (0.358-3.740)
[2025-07-29 04:07] LABS: Sex Horm Binding Glob, Serum 47.8 nmol/L (17.3-125.0)
== END 2025-07-28 07:36 | disposition home or self-care (01) ==
LOC: LAB 07:38
PROVIDERS: PCP Family Medicine; Visit Provider Internal Medicine
DX: Z00.00 Encounter for general adult medical examination without abnormal findings (principal); N95.1 Menopausal and female climacteric states; E27.9 Disorder of adrenal gland, unspecified; R53.83 Other fatigue
CPT/HCPCS: 36415; 80053; 80061; 82306; 82533; 82670; 82679; 84144; 84270; 84402; 84403; 84439; 84443; 84480; 85025

== ENCOUNTER 2025-08-29 07:19 | Outpatient (OUT) | payer OTHER, SELFPAY ==
--- OUTSIDE RECORDS SUMMARY | 2025-08-29 07:25 | XMS_ITS | Clinical Summary ---
Author Organization [facility] Address [address] [place] [address] Care Team Providers Care Latex Dipper Name Role Phone Rodolfo lAvarado DO Primary Care Provider [phone] Allergies Active AllergyReactionsCriticalityNoted DateCommentsSulfa (Sulfonamide Antibiotics)QquhEsd8808/26/2005 Other Reaction(s): Unknown Other Reaction(s): Rash YebgmkIdqaUnc20/12/2025 Medications MedicationSigDispense QuantityRefillsLast FilledStart DateEnd DateStatus hyoscyamine 0.[address] 0.125 mg under the tongue every 4 (four) hours if needed.5Active Active Problems ProblemNoted DateDiagnosed ZfsqNdprckyj70/10/2025Menopause vmazqlep87/10/2025 Owryeghdlgps71/10/2025Screening for colon peotoi065Acute respiratory failure with jcnroyx1210/20/2023 Overview (07/24/2025): Problem List clean-up per request of Phys. EHR Cmte COVID-19010/20/2023 Overview (07/24/2025): Problem List clean-up per request of Phys. EHR Cmte Viral ivpaleepkeufdfz35/06/2024Eruptive /25/2024Menopausal symptom 10/08/2023Menstrual lwazoirc75/25/2024lantar wart10/08/2023Severe acute respiratory syndrome coronavirus 2 (SARS-CoV-2) mennpdpt25/25/2024Vitamin D qnquojolen51/25/2024cute jibndavdr38/25/2008djustment reaction with mixed disturbance of emotions and hbkqyna47/25/2008Allergic ktzvuacs25/25/2008ullous mbybalvfjl99/25/2008Depressive dqwdrrha96/25/2008Irritable bowel syndrome 04/07/2008 Encounters DateTypeDepartmentCare ZhgfVjpkfxbbmkg70/12/2025 10:00 AM ESTOffice Visit [facility] [address] [place] [address] Fernanda Osorio MD Other chest pain (Primary Dx); CARLTON (dyspnea on exertion); Palpitationsfrom Last 3 Months Family History RelationNameStatusCommentsFatherAliveMotherAlive Social History Tobacco UseTypesPacks/DayYears UsedDateSmoking Tobacco: NeverSmokeless Tobacco: Never Tobacco Cessation:Counseling Given: Not Answered CommentsUnknownSex and Gender InformationValueDate RecordedSex Assigned at ZwedzMnsfhk96/07/2025 11:45 AM ESTLegal VpiZrgmlo72/06/2025 4:04 PM ESTGender BuuxowqaNldqio56/07/2025 11:45 AM ESTSexual OrientationHeterosexual or Straight 07/21/2025 11:45 AM EST Last Filed Vital Signs Vital SignReadingTime TakenCommentsBlood Bxydsfwl220/8207/26/2025 10:15 AM EST Jupyr809707/26/2025 10:15 AM ESTTemperature--Respiratory Rate--Oxygen Saturation 98%07/26/2025 10:15 AM ESTInhaled Oxygen Concentration--Gcbmvo00.3 kg (188 lb) 07/26/2025 10:15 AM AZUMiuluc537.1 cm (5' 5 )07/26/2025 10:15 AM ESTBody Mass Index31.28109/25/2024 10:15 AM EST Plan of Treatment DateTypeDepartmentCare Team (Latest Contact Info)Tmchkevydqy00/13/2026 10:00 AM ESTOffice Visit [facility] [address] [place] [address] Fernanda Osorio MD [address] [facility] [place] [address] Health MaintenanceDue DateLast DoneCommentsCT Pnhysqqytqeh1970Colonoscopy 1970Colorectal Cancer Vdhyfbbrx1970FIT-DNA1970FIT1970 FOBT03/11/19707045Yufiriaifeujw1970Depression Ehptqjonj84/28/1982Hepatitis B Vaccines (1 of 3 - 19+ 3-dose series)1989Pap Smear1991Adult Tetanus 1992Cervical Cancer Twcwmdpdp73/28/2000HPV/Uhzuvu9003/11/2000Mammogram 2010Zoster Vaccines (1 of 2)2020COVID-19 Vaccine ( [...] Procedures Procedure NamePriorityDate/TimeAssociated DiagnosisCommentsECG 12 LEAD UNIT FGWFLRFTQKkrjyig98/12/2025 10:03 AM EST Other chest pain from Last 3 Months Results * ECG 12 lead unit performed (07/26/2025 10:03 AM EST)Specimen (Source) Anatomical Location / LateralityCollection Method / VolumeCollection Time Received Time Narrative Authorizing ProviderResult TypeResult StatusEhab Devon AGUILERA ORDERABLESFinal Result from Last 3 Months Insurance Care Teams Team MemberRelationshipSpecialtyStart DateEnd Date Rodolfo Alvarado DO [address] [facility] [place] [phone] PCP - GeneralInternal Pdouspmg16/6/25
--- OUTSIDE RECORDS SUMMARY | 2025-08-29 07:25 | XMS_ITS | Clinical Summary ---
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 Name Role Phone Unavailable Primary Care Provider [...] ACID 400 MCG TAB 2 tabs once yvthm22510/27/2004Active BENTYL 10 MG CAP one po 30 min ac ahd HS or prn pain 60 Active LEVSIN 0.125 MG TAB as wrqbgudwa525/15/2006ctive ULTRACET 37.5 MG-325 MG TAB as jtnrzhuco269/15/2006ctive TYLOX 5 MG-500 MG CAP as vnklylxml867/15/2006ctive DARVOCET-N 100 100 MG-650 MG TAB as usoxbolmv580/15/2006ctive Social History Tobacco UseTypesPacks/DayYears UsedDateSmoking Tobacco: NeverAlcohol UseStandard Drinks/WeekCommentsNot Asked0 (1 standard drink = 0.6 oz pure alcohol) CommentsNoSex and Gender InformationValueDate RecordedSex Assigned at BirthNot on fileLegal HtmMjwwzj65/02/2012 7:32 AM ESTGender IdentityNot on fileSexual OrientationNot on file Last Filed Vital Signs Vital SignReadingTime TakenCommentsBlood Kknvfygs872/7709 10:39 AM EDT Pqxyp6519/ 10:39 AM EDTTemperature--Respiratory Rate--Oxygen Saturation-- Inhaled Oxygen Concentration--Rbdxpc51.7 kg (122 lb 12.7 oz)05/29/2006 10:39 AM CRNVouyjn928.6 cm (5' 6 )08/26/2005 8:30 AM ESTBody Mass Index19.8208/26/2005 8:30 AM EST Plan of Treatment Health MaintenanceDue DateLast DoneCommentsAnxiety Zbtpqavho52/28/1988Depression Jpdcdcyfk03/28/1988HIV Govmkhdxu36/28/1988Hepatitis C Ifknmkihe52/28/1988 DTaP,Tdap,Td Vaccine (1 - Tdap)1989Hepatitis B Vaccine (1 of 3 - 19+ 3- dose series)1989Cervical Cancer Vrhatcizn89/28/1991Mammogram Screening 2010CT Juzumiwkzpii29/28/2015Cologuard (FIT-DNA)2015Colonoscopy Colorectal Cancer Docblrcox35/28/2015Diabetes Screening 2015Fecal Occult Blood2015Lipid Gtaexxzwg05/28/2015Sigmoidoscopy 2015Pneumococcal Vaccine: 50+ (1 of 1 - PCV)2020Shingrix Vaccine (1 of 2)2020Covid-19 Vaccine (1 - 2024- season)2025Influenza Vaccine (#1)2025 Procedures Procedure NamePriorityDate/TimeAssociated DiagnosisCommentsCOLONOSCOPY, GI 09/27/2005 from Last 3 Months or Most Recently Relevant to Health Maintenance Results * COLONOSCOPY, GI (09/27/2005)ComponentValueRef RangeTest MethodAnalysis Time Performed AtPathologist SignatureTranscriptionDATE: 09/27/2005 ENDOSCOPIST: ??Tad Carmichael MD REFERRING PHYSICIAN: ? PATIENT NAME: [facility] NO: [id number] IMPRESSION: 1. Possible melanosis coli RECOMMENDATION: - [...] terminal ileum, throhgout the colon and rectum. [facility] LABSpecimen (Source)Anatomical Location / LateralityCollection Method / VolumeCollection TimeReceived Time09/27/2005 Narrative [facility] - 09/29/2005 7:29 AM EST Ordered by an unspecified provider. Authorizing ProviderResult TypeResult StatusCcf ProviderSCHEDULED PROCEDURES Final ResultPerforming OrganizationAddressCity/State/ZIP CodePhone Number [facility] [address] [place] [address] from Last 3 Months or Most Recently Relevant to Health Maintenance
--- OUTSIDE RECORDS SUMMARY | 2025-08-29 07:25 | XMS_ITS | Clinical Summary ---
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 Name Role Phone Moriah Nye MD Primary Care Provider [phone] Allergies Active AllergyReactionsCriticalityNoted DateCommentsMilk-Related Compounds 10/01/2023 Other Reaction(s): Unknown Sulfa Ccglzanaarb61/13/2005 Other Reaction(s): Unknown Other Reaction(s): Rash Medications [...] Problems ProblemNoted DateDiagnosed DateAcute respiratory failure with jydmwmy7710/20/2023 COVID-19010/20/2023Viral qajivchtavoftdk20/06/2024 Assessment & Plan (10/20/2023 10:44 AM EST): Increase fluids Gatorade/Powerade/Pedialyte Avoid Milk and Juices Tylenol for any Abdominal Pain Watch for Dehydration Clear liquids to a BRAT diet Banana Rice Applesauce [place] F/U if NB If Worsens go to ER for IV hydration Could be colitis May need CT scan and repeat Colonoscopy Eruptive teejwxiu69/25/2024Menopausal qaakile5510/08/2023Menstrual disorder 10/08/2023lantar wart10/08/2023Severe acute respiratory syndrome coronavirus 2 (SARS-CoV-2) gicoljbd73/25/2024Vitamin D efkgemyqdk76/25/2024cute gastritis 04/07/2008djustment reaction with mixed disturbance of emotions and conduct 04/07/2008llergic hgsccuuw05/25/2008ullous pqevlfiqsd24/25/2008Depressive uhefamfo42/25/2008Irritable bowel sgnjzxuu06/25/2008 Encounters DateTypeDepartmentCare ZjujGrlabecsxco71/14/2025linisync Result Encounter [facility] External Department Unsolicited Provider, Generic External Data from Last 3 Months Immunizations ImmunizationAdministration DatesNext DueInfluenza, seasonal, intradermal, preservative [...] InformationValueDate RecordedSex Assigned at BirthNot on fileLegal GddEfqqbq90/15/2023 6:41 PM EDTGender Identity Not on fileSexual OrientationNot on file Last Filed Vital Signs Vital SignReadingTime TakenCommentsBlood Pgvpzutg860/7202 10:54 AM EST Yvpqa305010/20/2023 10:24 AM ESTTemperature--Respiratory Rate--Oxygen Saturation 97%10/20/2023 10:24 AM ESTInhaled Oxygen Concentration--Rxkhax48.7 kg (178 lb) 10/26/2024 10:54 AM IDUAuxayq090.6 cm (5' 6 )10/01/2023 10:41 AM ESTBody Mass Index28.7310/01/2023 10:41 AM EST Plan of Treatment DateTypeDepartmentCare Team (Latest Contact Info)Eldjfcnquky52/04/2026 10:15 AM ESTOffice Visit [facility]io [facility] [address] [place] [address] Lindsey Maria DO [address] [place] [address] Health MaintenanceDue DateLast DoneCommentsCT Hiuzindoaeaf1970Colonoscopy 1970Colorectal Cancer Iuexnquyw1970FIT-DNA1970FIT1970 FOBT03/11/19707577Wvmdkpaqsbwjz1970Pap Smear03/11/19911431Octjirdjs11/11/2024 08/24/2023, 08/24/2023, 06/17/2022, Additional history existsCOVID-19 Vaccine (2024- season)2025Influenza Vaccine (#1)509/Cervical Cancer Qytaqjzre53/18/2029HPV/Txwpuz18/, 06/17/2022, 10/09/2020, Additional history existsPneumococcal Vaccine: Pediatrics (0 to 5 Years) and At-Risk Patients (6 to 64 Years)Aged OutNo longer eligible based on patient's age to complete this topic Procedures Procedure NamePriorityDate/TimeAssociated DiagnosisCommentsTBH ESTRONERoutine 07/28/2025 7:55 AM EST SRMCOH TESTOSTERONE FREE/TOT MNOPZDNPcosaic13/14/2025 7:55 AM EST METRO SEX BINDING HORMONE (SHBG), TESTOSTERONE, FREE AND BIOAVAILABLERoutine 07/28/2025 7:55 AM EST ALL ESTRONE(E1)Rblelkf9607/28/2025 7:55 AM EST ALL SHABFFZEYWJRKyhuxry91/14/2025 7:55 AM EST HMHP STOMTFJFCzmqjrj22/14/2025 7:55 AM EST HMHP T3 RIBBTAfddtdx80/14/2025 7:55 AM EST TBH VITAMIN D 25 DCRuflujc70/14/2025 7:55 AM EST ALL THYROXINE (T4) UJZRIavofyx87/14/2025 7:55 AM EST ALL CBC WITH AUTO BRTESksiivp52/14/2025 7:55 AM EST ALL THYROID STIM NFXNDKZEpaqbbh90/14/2025 7:55 AM EST [facility] CMP (CMP) (FOR REMOTE [facility] USE)Uakzktu9007/28/2025 7:55 AM EST ALL LIPID PROFILE (FASTING)Oouccnw7507/28/2025 7:55 AM EST THINPREP IMAGING PAP W/REFL HPV MRNA E6/V9Ztfwfgh75/18/2024 11:20 AM EST Screening for malignant neoplasm of cervix MM TOMOSYNTHESIS SCREENING BI08/24/2023 11:17 AM EST from Last 3 Months or Most Recently Relevant to Health Maintenance Results * TBH VITAMIN D 25 [place] (07/28/2025 7:55 AM EST)ComponentValueRef RangeTest Method Analysis TimePerformed AtPathologist SignatureVITAMIN D29.5ng/mLTBHComment: <20 ng/mL Vit D deficient 20-<30 ng/mL Vit D insufficient 30-100 ng/mL ??Vit D sufficient >100 ng/mL Potential Toxicity Specimen (Source)Anatomical Location / LateralityCollection Method / Volume Collection TimeReceived Time07/28/2025 7:55 AM EST07/28/2025 8:06 AM EST Narrative [facility] - 07/28/2025 11:44 AM EST Authorizing ProviderResult TypeResult StatusGeneric External Data Provider CLINISYNCFinal ResultPerforming OrganizationAddressCity/State/ZIP CodePhone Number [facility] * [facility] ESTRONE (07/28/2025 7:55 AM EST)ComponentValueRef RangeTest MethodAnalysis TimePerformed AtPathologist SignatureESTRONE, SERUM<6. pg/mLTBHComment: ?Range ?Adult (Premenopausal) ?27 - 231 ?Menstrual Cycle (1-10 days) ?19 - 149 ?Menstrual Cycle (11-20 days) ?? 32 - 176 ?Menstrual Cycle (21-30 days) ?? 37 - 200 ?Adult (Postmenopausal) ?0 - 125 Performed at: ?? - [facility] ??[id number] Roller Varnisher: Tara Mojica MD, Phone: ??[phone] Specimen (Source)Anatomical Location / LateralityCollection Method / Volume Collection TimeReceived Time07/28/2025 7:55 AM EST07/28/2025 8:06 AM EST Narrative [facility] - 07/31/2025 7:08 PM EST Authorizing ProviderResult TypeResult StatusGeneric External Data Provider CLINISYNCFinal ResultPerforming OrganizationAddressCity/State/ZIP CodePhone Number [facility] * (ABNORMAL) SRMCOH TESTOSTERONE FREE/TOT EQUILIB (07/28/2025 7:55 AM EST) ComponentValueRef RangeTest MethodAnalysis TimePerformed AtPathologist SignatureTESTOSTERONE<3(A)4 - 50 ng/dLTBHFREE TESTOSTERONE(DIRECT)0.50.0 - 4.2 pg/mLTBHComment: Performed at: ??[facility] ??[id number] Roller Varnisher: Ivan Frye PhD, Phone: ??[phone] Performed at: ??[facility] ??[id number] Roller Varnisher: Tara Mojica MD, Phone: ??[phone] Specimen (Source)Anatomical Location / LateralityCollection Method / Volume Collection TimeReceived Time07/28/2025 7:55 AM EST07/28/2025 8:06 AM EST Narrative [facility] - 07/30/2025 2:08 PM EST Authorizing ProviderResult TypeResult StatusGeneric External Data Provider CLINISYNCFinal ResultPerforming OrganizationAddressty/State/ZIP CodePhone Number [facility] * METRO SEX BINDING HORMONE (SHBG), TESTOSTERONE, FREE AND BIOAVAILABLE (07/28/2025 7:55 AM EST)ComponentValueRef RangeTest MethodAnalysis Time Performed AtPathologist SignatureSEX HORM BINDING GLOB, SERUM47.817.3 - 125.0 nmol/LTBHComment: Performed at: ??[facility] ??[id number] Roller Varnisher: Ivan Frye PhD, Phone: ??[phone] Specimen (Source)Anatomical Location / LateralityCollection Method / Volume Collection TimeReceived Time07/28/2025 7:55 AM EST07/28/2025 8:06 AM EST Narrative [facility] - 07/30/2025 2:08 PM EST Authorizing ProviderResult TypeResult StatusGeneric External Data Provider CLINISYNCFinal ResultPerforming OrganizationAddressCity/State/ZIP CodePhone Number [facility] * [facility] T3 TOTAL (07/28/2025 7:55 AM EST)ComponentValueRef RangeTest Method Analysis TimePerformed AtPathologist SignatureTBH TRIIODOTHYRONINE (T3)21610 - 180 ng/dLTBHSpecimen (Source)Anatomical Location / LateralityCollection Method / VolumeCollection TimeReceived Time07/28/2025 7:55 AM EST07/28/2025 8:06 AM EST Narrative [facility] - 07/30/2025 2:08 PM EST Authorizing ProviderResult TypeResult StatusGeneric External Data Provider CLINISYNCFinal ResultPerforming OrganizationAddressCity/State/ZIP CodePhone Number [facility] * [facility] CORTISOL (07/28/2025 7:55 AM EST)ComponentValueRef RangeTest Method Analysis TimePerformed AtPathologist SignatureTBH GUXPEGBR92.66.2 - 19.4 ug/dL TBHComment: Please Note: The reference interval and flagging for this test is for an AM collection. If this is a PM collection please use: ? Cortisol PM: 2.3-11.9 Specimen (Source)Anatomical Location / LateralityCollection Method / Volume Collection TimeReceived Time07/28/2025 7:55 AM EST07/28/2025 8:06 AM EST Narrative [facility] - 07/30/2025 2:08 PM EST Authorizing ProviderResult TypeResult StatusGeneric External Data Provider CLINISYNCFinal ResultPerforming OrganizationAddressCity/State/ZIP CodePhone Number [facility] * (ABNORMAL) [facility] CMP (CMP) (FOR REMOTE [facility] USE) (07/28/2025 7:55 AM EST) ComponentValueRef RangeTest MethodAnalysis TimePerformed AtPathologist OafffjmrtNIGRYD686875 - 145 mmol/LTBHPOTASSIUM3.93.5 - 5.1 mmol/LTBHCHLORIDE 59076 - 107 mmol/LTBHCARBON SROWFRT14.921.0 - 32.0 mmol/LTBHANION GAP16.0TBH ZELJSJQ049(H)74 - 106 mg/dLTBHBLOOD UREA IKTHMPAT17.07.0 - 18.0 mg/dLTBH CREATININE0.810.55 - 1.02 mg/dLTBHTBH EGFR-AF BOTSWANAN>60>=60 mL/min/1.73m 2 TBHTBH EGFR-NON AF BOTSWANAN>60>=60 mL/min/1.73m 2TBHBUN CREATININE RATIO13.6 TBHCALCIUM9.28.5 - 10.1 mg/dLTBHBILIRUBIN TOTAL2.1(H)0.2 - 1.0 mg/dLTBH ASPARTATE AMINO XCMIPIUGYVO6303 - 37 U/LTBHALANINE STZTNXWNRZEOEVDY8665 - 59 U/LTBHALKALINE ORCZVTWUMIO48420 - 116 U/LTBHTOTAL PROTEIN7.26.4 - 8.2 g/dLTBH ALBUMIN LEVEL4.03.4 - 5.0 g/dLTBHGLOBULIN3.2g/dLTBHALBUMIN GLOBULIN RATIO1.3 TBHSpecimen (Source)Anatomical Location / LateralityCollection Method / Volume Collection TimeReceived Time07/28/2025 7:55 AM EST07/28/2025 8:06 AM EST Narrative [facility] - 07/28/2025 9:00 AM EST Authorizing ProviderResult TypeResult StatusGeneric External Data Provider CLINISYNCFinal ResultPerforming OrganizationAddressCity/State/ZIP CodePhone Number [facility] * ALL THYROXINE (T4) FREE (07/28/2025 7:55 AM EST)ComponentValueRef RangeTest MethodAnalysis TimePerformed AtPathologist SignatureFREE T41.220.76 - 1.46 ng/dLTBHSpecimen (Source)Anatomical Location / LateralityCollection Method / VolumeCollection TimeReceived Time07/28/2025 7:55 AM EST07/28/2025 8:06 AM EST Narrative [facility] - 07/28/2025 9:48 AM EST Authorizing ProviderResult TypeResult StatusGeneric External Data Provider CLINISYNCFinal ResultPerforming OrganizationAddressty/State/ZIP CodePhone Number [facility] * (ABNORMAL) ALL THYROID STIM HORMONE (07/28/2025 7:55 AM EST)ComponentValueRef RangeTest MethodAnalysis TimePerformed AtPathologist SignatureTHYROID STIMULATING HORMONE4.013(H)0.358 - 3.740 uIU/mLTBHSpecimen (Source)Anatomical Location / LateralityCollection Method / VolumeCollection TimeReceived Time 07/28/2025 7:55 AM EST07/28/2025 8:06 AM EST Narrative [facility] - 07/28/2025 9:00 AM EST Authorizing ProviderResult TypeResult StatusGeneric External Data Provider CLINISYNCFinal ResultPerforming OrganizationAddressCity/State/ZIP CodePhone Number [facility] * ALL PROGESTERONE (07/28/2025 7:55 AM EST)ComponentValueRef RangeTest Method Analysis TimePerformed AtPathologist SignaturePROGESTERONE0.1. ng/mLTBH Comment: ? Follicular phase ? 0.1 - ?? 0.9 ? Luteal phase ? 1.8 - ??23.9 ? Ovulation phase ?0.1 - ??12.0 ?First trimester ?11.0 - ??44.3 ?Second trimester ?? 25.4 - ??83.3 ?Third trimester ?58.7 - 214.0 ? Postmenopausal ? 0.0 - ?? 0.1 Specimen (Source)Anatomical Location / LateralityCollection Method / Volume Collection TimeReceived Time07/28/2025 7:55 AM EST07/28/2025 8:06 AM EST Narrative [facility] - 07/30/2025 2:08 PM EST Authorizing ProviderResult TypeResult StatusGeneric External Data Provider [facility] ResultPerforming OrganizationAddEncompass Health/State/ZIP CodePhone Number [facility] * (ABNORMAL) ALL LIPID PROFILE (FASTING) (07/28/2025 7:55 AM EST)ComponentValue Ref RangeTest MethodAnalysis TimePerformed AtPathologist Signature UNECFNPVAKPLG280<=150 mg/vYLIQWVLBIBIQTTV510(H)<=200 mg/dLTBHHDL AXKUAFQLJJH26 40 - 60 mg/dLTBHComment: > or =60 mg/dl - LOW CARDIOVASCULAR RISK <40 mg/dl - HIGH CARDIOVASCULAR RISK LDL CHOLESTEROL DKMIKBZDCR381.0mg/dLTBHComment: <100 mg/dl OPTIMAL 100-129 mg/dl NEAR OR ABOVE OPTIMAL 130-159 mg/dl BORDERLINE HIGH 160-189 mg/dl HIGH >190 mg/dl VERY HIGH VLDL QSXNISMYBVZ78.8mg/dLTBHCHOL HDL RATIO4.6TBHComment: 3.3 - 4.4 ?? LOW RISK 4.4 - 7.1 ?? AVERAGE RISK 7.1 - 11.0 ??MODERATE RISK >11.0 HIGH RISK Specimen (Source)Anatomical Location / LateralityCollection Method / Volume Collection TimeReceived Time07/28/2025 7:55 AM EST07/28/2025 8:[address] [facility] 07/28/2025 8:52 AM EST Authorizing ProviderResult TypeResult StatusGeneric External Data Provider [facility] ResultPerforming OrganizationAddEncompass Health/[facility]/ZIP CodePhone Number [facility] * ALL ESTRONE(E1) (07/28/2025 7:55 AM EST)ComponentValueRef RangeTest Method Analysis TimePerformed AtPathologist SignatureESTRADIOL<5.0. pg/mLTBHComment: ? Adult Female ? Range ?Follicular phase ? 12.5 - 166.0 ?Ovulation phase ?85.8 - 498.0 ?Luteal phase ? 43.8 - 211.0 Postmenopausal <6.0 - 54.7 ? 1st trimester 215.0 - >4300.0 Eve ECLIA methodology Specimen (Source)Anatomical Location / LateralityCollection Method / Volume Collection TimeReceived Time07/28/2025 7:55 AM EST07/28/2025 8:06 AM EST Narrative [facility] - 07/30/2025 2:08 PM EST Authorizing ProviderResult TypeResult StatusGeneric External Data Provider CLINISYNCFinal ResultPerforming OrganizationAddressCity/State/ZIP CodePhone Number [facility] * (ABNORMAL) ALL CBC WITH AUTO DIFF (07/28/2025 7:55 AM EST)ComponentValueRef RangeTest MethodAnalysis TimePerformed AtPathologist SignatureTBH WBC7.14.0 - 11.0 10 3/uLTBHTBH RBC4.744.20 - 5.40 10 6/uLTBHTBH HGB14.212.0 - 16.0 g/dLTBH TBH HCT40.236.0 - 48.0 %TBHTBH MCV84.881.0 - 99.0 fLTBHTBH MCH30.026.7 - 34.0 pgTBHTBH MCHC35.3(H)29.9 - 35.2 g/dLTBHTBH RDW12.311.0 - 15.0 %TBHTBH RKM117 150 - 450 10 3/uLTBHTBH MPV9.69.5 - 13.5 fLTBHNEUTROPHILS PERCENT AUTO68.243.0 - 75.0 %TBHLYMPHOCYTES PERCENT AUTO20.0(L)20.5 - 60.0 %TBHMONOCYTES PERCENT AUTO7.51.7 - 12.0 %TBHTBH EO %3.00.9 - 7.0 %TBHBASOPHILS PERCENT AUTO1.00.2 - 2.0 %TBHIMMATURE GRANULOCYTES PCT AUTO0.30.0 - 0.5 %TBHNEUTROPHILS ABSOLUTE AUTO4.91.4 - 6.5 10 3/uLTBHLYMPHOCYTES ABSOLUTE AUTO1.41.2 - 3.8 10 3/uLTBH MONOCYTES ABSOLUTE AUTO0.50.3 - 0.8 10 3/uLTBHTBH EO #0.20.0 - 0.7 10 3/uLTBH BASOPHILS ABSOLUTE AUTO0.10.0 - 0.1 10 3/uLTBHIMMATURE GRANULOCYTES ABS AUTO 0.020.00 - 0.03 10 3/uLTBHSpecimen (Source)Anatomical Location / Laterality Collection Method / VolumeCollection TimeReceived Time07/28/2025 7:55 AM EST 07/28/2025 8:06 AM EST Narrative [facility] - 07/28/2025 9:01 AM EST Authorizing ProviderResult TypeResult StatusGeneric External Data Provider CLINISYNCFinal ResultPerforming OrganizationAddressCity/State/ZIP CodePhone Number [facility] * THINPREP IMAGING PAP W/REFL HPV MRNA [...] cannot be reported in this patient. CYTOTECHNOLOGISTQUESTComment: KMB, CT(ASCP) CT screening location: [facility] [place], [address] [place] [address], [place] [address]. (ALWAYS MESSAGE)QUESTComment: EXPLANATORY NOTE: The Pap is [...] Performing Organization Information ?Site ID: [id number] ?Name: [facility] ?Address: [address] [place] [address], [address] [place] [id number] ?Director: Landon Marshall MD Authorizing ProviderResult TypeResult StatusKatfreddy Maria DOLAB CYTOLOGY ORDERABLESFinal ResultPerforming OrganizationAddressCity/State/ZIP CodePhone Number [facility] * MM TOMOSYNTHESIS SCREENING BI (08/24/2023 11:17 AM EST)Anatomical Region LateralityModalityOtherSpecimen (Source)Anatomical Location / Laterality Collection Method / VolumeCollection TimeReceived Time08/24/2023 11:17 AM EST Narrative 08/24/2023 11:18 AM EST [facility] ?[address] ? [place] [address] ? Mammography Report ? Signed ? Patient: Cardona,Vanita M ?MR#: [id number] ?? : 1970 ?Acct:[id number] ?? Age/Sex: 53 / F ?ADM Date: 08/24/23 ?? Loc: MAMMO ? Attending Dr: LINDSEY MARIA ? Ordering Physician: LINDSEY MARIA ? Results: ? Date of Service: 08/24/23 ?Follow Up: ? Procedure(s): MM tomosynthesis screening BI ?? Accession Number(s): [id number] ? cc: MORIAH NYE ; LINDSEY MARIA ? Patient Name: ? VANITA CARDONA ? MR#: [id number] ? : 1970 ? Exam Date: 08/24/2023 [...] Cancers ? None ? LOCATION: ? [facility] ? BREAST COMPOSITION: ? Extremely dense, which [...] 1118 ? DD/ 1117 ? TD/TT: ? Senior Instructional Designer: Procedure Note Radiology, Radiologist, - 08/24/2023 [place] [address] Mammography Report Signed Patient: Vanita Cardona MMR#: [id number] : 1970Acct:[id number] Age/Sex: 53 / FADM Date: 08/24/23 Loc: MAMMO Attending Dr: LINDSEY MARIA Ordering Physician: LINDSEY MARIAResults: Date of Service: 08/24/23Follow Up: Procedure(s): MM tomosynthesis screening BI Accession Number(s): [id number] cc: MORIAH NYE ; LINDSEY MARIA Patient Name: VANITA CARDONA MR#: [id number] : 1970 Exam Date: 08/24/2023 Ordering Doctor: [...] Treatments None Family Cancers None LOCATION: [facility] BREAST COMPOSITION: Extremely dense, which lowers the [...] M.D. Signed By:08/24/23 1118 DD/ 1117 TD/TT: Senior Instructional Designer: Authorizing ProviderResult TypeResult StatusGeneric External Data Provider [facility]NC IMAGINGFinal Result from Last 3 Months or Most Recently Relevant to Health Maintenance [place] [address] Care Teams Team MemberRelationshipSpecialtyStart DateEnd Date Moriah Nye MD [address] [facility] [address] [place] [address] PCP - GeneralFamily Medicine01/20/23
--- NOTE | 2025-08-29 07:45 | NM_ITS ---
Patient Name: SHREE ACUÑA MR#: [id number] : 1970 Exam Date: 08/29/2025 Ordering Doctor: DR MARQUISE OSORIO M.D. RADIOLOGY REPORT PROCEDURE: NM RAN PERF SPECT REST STR COMPARISON: None. INDICATIONS: CHEST PAIN, PALPITATIONS, SHORTNESS OF BREATH TECHNIQUE: Exam Description: Stress/Rest one day protocol gated SPECT Rest Imagin.2 mCi Tc-99m Cardiolite IV on 08/29/2025 Stress Imaging 29.6 mCi Tc-99m Cardiolite IV on 08/29/2025 Exercise Protocol: Donal Heart Rate (bpm): Rest: 76 Max: 157 PMHR: 95 Blood Pressure: Rest: 124/84 Max: 156/88 Symptoms: Rest and peak stress ECG findings were pending, and the exercise portion of the study was pending per attending physician [facility]. For more details, please see separate cardiac stress test report. FINDINGS: QUALITY OF STUDY: Good PERFUSION DEFECT: LOCATION: N/A SIZE: N/A SEVERITY: N/A TYPE: N/A WALL MOTION: Normal wall motion LV SIZE: 55 mL. TID / TCD: 0.8 LVEF: Calculated EF 81%. SUMMARY: Myocardial perfusion imaging study is normal CONCLUSION: 1. Myocardial perfusion is normal with soft tissue attenuation 2. Global left ventricular systolic function is hyperdynamic; EF 51% 3. No significant transient ischemic dilatation Dictated by: Marquise Osorio M.D. on 08/29/2025 at 14:31 Approved by: Marquise Osorio M.D. on 08/29/2025 at 14:32
--- NOTE | 2025-08-29 07:54 | CA_ITS ---
Patient Name: SHREE ACUÑA MR#: [id number] : 1970 Exam Date: 08/29/2025 Ordering Doctor: DR MARQUISE ROCHA M.D. ECHOCARDIOGRAM REPORT PROCEDURE: CA ECHO DOPPLER COMPLETE INDICATIONS: Chest pain, [place], Palpitations COMPARISON: None. DESCRIPTION: COMPLETE ECHOCARDIOGRAM Real-time transthoracic echocardiography with 2D, M-mode, spectral and color flow Doppler performed. QUALITY: Technical quality was good. LEFT VENTRICLE: Normal chamber size. Normal left ventricular wall thickness. Global left ventricular systolic function is normal. Estimated left ventricular ejection fraction is 55-60%. LV EF: Normal left ventricular ejection fraction, (>55%). DIASTOLIC: Normal diastolic function. ATRIAL SEPTUM: LEFT ATRIUM: Normal chamber size. RIGHT ATRIUM: Normal chamber size. RIGHT VENTRICLE: Normal chamber size. Normal right ventricular systolic function. TRICUSPID VALVE: Normal mobility and thickness. No stenosis with trivial regurgitation. No evidence of pulmonary hypertension. RVSP 26 mmHg. MITRAL VALVE: Normal mobility and thickness. No evidence of mitral valve stenosis. There is no mitral annular calcification. Trivial mitral regurgitation. AORTIC VALVE: Normal trileaflet appearance. No visible sclerosis. Normal leaflet mobility. No evidence of aortic valve stenosis. No aortic regurgitation. AORTIC ROOT: Normal diameter and appearance. The aortic root measures 3.0 cm. The ascending aorta is normal in size measuring 3.0 cm. PULMONIC VALVE: Normal thickness and mobility. No stenosis. No regurgitation. PERICARDIUM: No evidence of pericardial effusion. IVC: Collapses with inspiration. The IVC is normal in size measuring 1.5 cm. PLEURA: CONCLUSION: 1. Normal ventricular size and systolic function. Estimated LVEF is 55-60%. 2. Normal diastolic function. 3. No significant valvular dysfunction. 4. Normal right-sided pressures. Adult Echocardiography Procedure Report Left Ventricle LVEDD (3.7 - 5.6 cm): 4.68 cm LVESD (2.2 - 4.0 cm): 3.11 cm LVIVS thickness (0.6 - 1.2 cm): 0.71 cm LVPW thickness (0.5 - 1.0 cm): 0.83 cm e': 0.10 m/s E - e': 7.17 LVOT Max Gradient: 2.84 mm[Hg] LVOT Area (cm2): 0.84 m/s Peak Velocity (LVOT): 0.84 m/s Mean Velocity (LVOT): 0.55 m/s LVOT Diameter 1.96 cm Left Ventricular Ejection Fraction: 55-60 % Left Atrium LA Volume Index (2D A2C): 26.16 ml/m2 Left Atrium Systolic Dimension: 3.38 cm Mitral Valve MV E to A Ratio: 0.74 Mitral Valve A-Wave Peak Velocity: 0.93 m/s Mitral Valve E-Wave Peak Velocity: 0.68 m/s Right Ventricle RV Internal Diastolic Dimension: 2.61 cm Aorta AO Root Diam: 2.99 cm Ascending Ao Diam: 2.98 cm Aortic Valve AoV Area (Peak Mitch): 2.92 cm2, 2.92 cm2 AoV Area (VTI): 2.82 cm2, 2.82 cm2 Peak Velocity(Antegrade Flow): 0.87 m/s Peak Gradient(Antegrade Flow): 3.05 mm[Hg] Mean Velocity(Antegrade Flow): 0.59 m/s Mean Gradient(Antegrade Flow): 1.62 mm[Hg] Velocity Time Integral: 20.09 cm Tricuspid Valve Peak Velocity (Regurgitant Flow): 1.73 m/s, 2.40 m/s Pulmonic Valve Mean Gradient: 0.91 mm[Hg], 1.29 mm[Hg] Mean Velocity: 0.44 m/s, 0.54 m/s Peak Velocity: 0.70 m/s Peak Gradient: 1.96 mm[Hg], 1.96 mm[Hg] Right Atrium Right Atrium Systolic Pressure: 44.39 ml, 44.39 ml Dictated by: Henry Braun M.D. on 08/29/2025 at 19:24 Approved by: Henry Braun M.D. on 08/29/2025 at 19:27
--- NOTE | 2025-08-29 09:49 | PC.NURSE ---
Cardiolyte stress test completed. Pt tolerated well with only dyspnea, no chest pain or palpitations during test. Went to cafeteria for breakfast.
--- NOTE | 2025-08-29 16:53 | PM.STRESS ---
Stress Test Stress Test Allergies Allergy/AdvReac Type Severity Reaction Status Date / Time Sulfa (Sulfonamide Allergy Rash Verified 11/22/23 06:38 Antibiotics) Requesting physician: Fernanda Osorio Procedure: Treadmill nuclear perfusion study General Information: Reason for Stress Test: Chest pain/shortness of breath/palpitations Cardiac History and Risk Factors: Family history of CAD(father), Resting 12 - Lead Electrocardiogram: Sinus rhythm with normal intervals and normal R wave progression Stress Test: Protocol: Donal protocol Exercise Capacity: Patient exercised for 6 minutes and 8 seconds achieving a work level of 7 METS Blood Pressure Response: Baseline heart rate of 76 bpm 88/84 mmHg to a maximum heart rate of 157 bpm and a maximal blood pressure of 156/88 mmHg which represents 95% of the maximal age-predicted heart rate. Rhythm: Sinus tachycardia ST - Response: No evidence of ischemia Patient Response: Dyspnea Interpretation: 1. No EKG evidence of ischemia noted on with treadmill test 2. Normal chronotropic response seen with blood pressure response corresponding with exercise 3. No evidence of arrhythmia with exercise. 4. Nuclear perfusion study to be dictated separately
== END 2025-08-29 07:20 | disposition home or self-care (01) ==
PROVIDERS: PCP Internal Medicine; Visit Provider Internal Medicine Interventional Cardiology
DX: R07.89 Other chest pain (principal); R06.09 Other forms of dyspnea; R00.2 Palpitations
CPT/HCPCS: 78452; 93017; 93306; A9500